=== PATIENT | male | born 1980 | race Caucasian/White ===

== ENCOUNTER 2023-02-12 08:47 | Emergency (ER) | payer OTHER, SELFPAY ==
--- NOTE | 2023-02-12 08:57 | ED.URI ---
HPI - URI/Sore Throat General Chief Complaint: Upper Respiratory Infection Stated Complaint: sorethroat,congestion Time Seen by Provider: 02/12/23 08:57 Source: patient Mode of arrival: ambulatory Limitations: no limitations History of Present Illness HPI Narrative: Sonny is a 42-year-old male patient presenting to the clinic today with complaints of fatigue, sore throat, nasal congestion, chest congestion x3 days. He reports no fever or chills but has had some body aches. 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 Has productive cough and bringing up some green phlegm. MD elicited complaint: cough, sore throat and nasal congestion Related Data Allergies Allergy/AdvReac Type Severity Reaction Status Date / Time No Known Allergies Allergy Verified 09/14/22 10:18 Review of Systems Review of Systems: Pertinent positives per HPI. Patient denies any fever, chills, rash, headache, visual changes, dizziness, cough, shortness of breath, chest pain, palpitations, nausea, vomiting, diarrhea, constipation, abdominal pain, or any urinary issues. PMFSH Past Medical History Medical History Wellness examination Family History Family History Mother Hypertension Social History Social History Smoking status: Former smoker Smoking end date: 04/18/04 Alcohol intake: current Drinks per week: 1 Substance use: never Substance use type: does not use Living arrangements: with family Occupation/Education: occupation Gender identity (if verbalized by the patient): Male Comments At the time of my signature, I reviewed and agree with the nursing past medical, surgical, social, and family history. There is no relevant family history pertinent to the patient complaint. Exam Narrative: General: Well-developed, well nourished, in no apparent distress Head: Normocephalic, atraumatic Eyes: Pupils equally round and reactive to light bilaterally, EOM intact, sclera and conjunctive clear, no discharge, lids normal Ears: TMs intact and congested, ear canals clear, no drainage, grossly hearing normal. Nose: Nares patent, clear nasal discharge, no inflammation, no sinus tenderness. Mouth: Oral pharynx red without lesions or masses, good dentition, MMM. Postnasal drip Neck: Supple, trachea midline, no enlargement of anterior or posterior cervical nodes, no thyroid masses or goiter palpable. Cardio: Regular rate and rhythm, s1 and s2 normal, no murmur appreciated. Resp: Clear to auscultation bilaterally, no rhonchi, rales, wheezing or rubs Course Course Emergency Course: Portions of this record may have been created with voice recognition software. Level of Care: Express Care Visit Vital Signs Vital signs: Vital signs reviewed MDM - URI/Sore Throat MDM Narrative Medical decision making narrative: At the time of visit patient is resting comfortably on the exam table. Strep screen and COVID testing was obtained. COVID testing was negative. Strep test was positive. Prescription for amoxicillin and prednisone was sent to the pharmacy to help with the postnasal drip and congestion. Supportive measures were discussed with the patient he voiced understanding discharge instructions agrees to treatment plan. Differential Diagnosis Differential diagnosis: Likely upper respiratory infection, otitis media, sinusitis, viral infection, bronchitis, influenza, pharyngitis and other (COVID) Discharge Plan Discharge Clinical Impression: Strep pharyngitis URI (upper respiratory infection) Qualifiers: URI type: unspecified URI Qualified Code(s): J06.9 - Acute upper respiratory infection, unspecified Patient Disposition: Home, Self-Care Condition: Stable Instructions: Antibiotic Form, Strep Throat (ED), Upper Respirator
[2023-02-12 09:01] VITALS: BP 112/75; PULSE 60; RESP 18; TEMP 36.6; O2SAT 100
== END 2023-02-12 09:37 | disposition home or self-care (01) ==
PROVIDERS: Emergency Provider Nurse Practitioner Family; PCP Family Medicine
DX: J02.0 Streptococcal pharyngitis (principal); Z20.822 Contact with and (suspected) exposure to COVID-19; Z87.891 Personal history of nicotine dependence
CPT/HCPCS: 87081; 87426; 87880; 99213; C9803; G0463

== ENCOUNTER 2023-03-05 08:16 | Emergency (ER) | payer OTHER, SELFPAY ==
--- NOTE | 2023-03-05 08:23 | ED.URI ---
HPI - URI/Sore Throat General Chief Complaint: Upper Respiratory Infection Stated Complaint: congestion Time Seen by Provider: 03/05/23 08:28 Source: patient, RN notes reviewed and old records reviewed Mode of arrival: ambulatory Limitations: no limitations History of Present Illness HPI Narrative: 42-year-old male presents to the [facility] with complaints of sinus congestion. patient denies any fevers. States that this morning he coughed up some green phlegm. Patient was seen 3 weeks ago diagnosed with strep pharyngitis, prescribed amoxicillin and prednisone. Patient symptoms started Tuesday or Tuesday. 3-4 days ago. Treatment prior to arrival was NyQuil Patient states that he did get his flu and COVID booster on Tuesday, symptoms started afterwards. Denies chest pain, shortness of breath. Denies abdominal pain. Onset (ago): day(s) (3-4) Treatments prior to arrival: cold medicine Related Data Allergies Allergy/AdvReac Type Severity Reaction Status Date / Time No Known Allergies Allergy Verified 03/05/23 08:21 Review of Systems Review of Systems: All systems reviewed & are unremarkable except as noted in HPI and below Constitutional: Constitutional: Reports no additional constitutional complaints Eyes: Eyes: Reports no additional eye complaints ENT: Reports as per HPI and Reports nasal congestion Cardiovascular: Cardiovascular: Reports no additional cardiovascular complaints, Denies chest pain and Denies dyspnea Respiratory: Respiratory: Reports no additional respiratory complaints, Denies chest congestion, Denies cough and Denies dyspnea Gastrointestinal: Gastrointestinal: Reports no additional gastrointestinal complaints, Denies abdominal pain, Denies nausea and Denies vomiting Musculoskeletal: Musculoskeletal: Reports no additional musculoskeletal complaints Integumentary/Breasts: Skin/Breast: Reports system reviewed and no additional complaints, except as docu Neurologic: Reports system reviewed and no additional complaints, except as documented Psychiatric: Psychiatric: Reports no additional psychiatric complaints Allergic/Immunologic: Allergic/Immunologic: Reports no additional allergic/immunologic complaints [facility] Past Medical History Medical History (Updated 03/05/23 @ 08:45 by Kati Wilson APRN) OLY (generalized anxiety disorder) Wellness examination Surgical History Surgical History (Updated 03/05/23 @ 08:39 by Kati Wilson APRN) No pertinent past surgical history Family History Family History Mother Hypertension Social History Social History Smoking status: Former smoker Smoking end date: 04/18/04 Alcohol intake: current Drinks per week: 1 Substance use: never Substance use type: does not use Living arrangements: with family Occupation/Education: occupation Gender identity (if verbalized by the patient): Male Comments At the time of my signature, I reviewed and agree with the nursing past medical, surgical, social, and family history. There is no relevant family history pertinent to the patient complaint. Exam Const: General: cooperative, healthy appearing, comfortable, no acute distress, well developed, alert and well nourished Nutritional Appearance: well nourished Orientation/consciousness: patient oriented x3 Limitations: no limitations HENMT: Head: normal to inspection Ears: hearing grossly normal bilaterally, external ears normal, TM's normal bilaterally, mastoids normal and no periauricular adenopathy Face/Nose/Sinus: Normal external nose present, Normal nares present, Normal nasal mucous membranes and turbinates present, normal facial exam and face symmetric Face and sinus: normal facial exam and face symmetric Mouth: Yes Normal oral and palatal mucosa present, Yes lip normal and Yes moist mucous membranes Throat: posterior oropharynx n
[2023-03-05 08:32] VITALS: BP 121/80; PULSE 60; RESP 20; TEMP 36.6; O2SAT 100
== END 2023-03-05 08:46 | disposition home or self-care (01) ==
PROVIDERS: Emergency Provider Nurse Practitioner; PCP Family Medicine
DX: J06.9 Acute upper respiratory infection, unspecified (principal); Z87.891 Personal history of nicotine dependence; F41.1 Generalized anxiety disorder
CPT/HCPCS: 99211; G0463

== ENCOUNTER 2023-06-30 08:06 | Emergency (ER) | payer OTHER, SELFPAY ==
--- NOTE | 2023-06-30 08:13 | ED.GENADULT ---
HPI - General Adult General Chief complaint: Unspecified Stated complaint: Muscle Cramps Time Seen by Provider: 06/30/23 08:11 Source: patient, RN notes reviewed and old records reviewed Mode of arrival: ambulatory Limitations: no limitations History of Present Illness HPI narrative: 42-year-old male to Express Care for complaint muscle cramps and fatigue for 2 days. patient endorses that he has a appointment with his primary care provider in 2 weeks for his annual MD had labs done yesterday at [facility]. Patient denies chest pain or shortness of breath. Patient able to tolerate fluids by mouth. Related Data Allergies Allergy/AdvReac Type Severity Reaction Status Date / Time No Known Allergies Allergy Verified 06/28/23 09:59 Review of Systems Review of Systems: All systems reviewed & are unremarkable except as noted in HPI and below Constitutional: Constitutional: Reports as per HPI, Denies daytime sleepiness, Denies difficulty sleeping, Denies fever(s) and Denies poor appetite Eyes: Eyes: Reports no additional eye complaints ENT: Reports system reviewed and no additional complaints, except as documented Cardiovascular: Cardiovascular: Reports no additional cardiovascular complaints, Denies chest pain and Denies dyspnea Respiratory: Respiratory: Reports no additional respiratory complaints, Denies cough and Denies dyspnea Musculoskeletal: Musculoskeletal: Reports as per HPI, Reports arthralgias (chronic hips per pt) and Denies numbness Neurologic: Reports system reviewed and no additional complaints, except as documented Psychiatric: Psychiatric: Reports no additional psychiatric complaints, Denies abnormal sleep pattern, Reports anxiety, Denies change in appetite, Denies confusion and Reports panic attacks PMFSH Past Medical History Medical History OLY (generalized anxiety disorder) Wellness examination Surgical History Surgical History No pertinent past surgical history Family History Family History Mother Hypertension Social History Social History Smoking status: Former smoker Smoking end date: 04/18/04 Alcohol intake: current Drinks per week: 1 Substance use: never Substance use type: does not use Living arrangements: with family Occupation/Education: occupation Gender identity (if verbalized by the patient): Male Comments At the time of my signature, I reviewed and agree with the nursing past medical, surgical, social, and family history. There is no relevant family history pertinent to the patient complaint. Exam Const: General: cooperative, healthy appearing, comfortable, no acute distress, alert and well nourished Nutritional Appearance: well nourished Orientation/consciousness: patient oriented x3 Limitations: no limitations HENMT: Head: normal to inspection Ears: external ears normal Face/Nose/Sinus: Normal external nose present, Normal nares present, normal facial exam, No erythema and No edema Face and sinus: normal facial exam, no erythema and no edema Mouth: Yes Normal oral and palatal mucosa present Eyes: General: appearance normal, both eyes and all related structures Neck: Neck: normal visual inspection, full ROM and no meningeal signs Lymphatic: no lymphadenopathy noted and no lymphedema noted Chest: Chest palpation & inspection: normal inspection of the chest Resp: Effort & Inspection: normal respiratory effort and able to speak in complete sentences Auscultation: clear to auscultation bilaterally Cardio: Jugular venous distension: no JVD Rate: regular rate Rhythm: regular rhythm Back/Spine/Pelvis: Cervical Spine: cervical ROM normal Skin: General skin exam: normal color, no rashes or lesions noted and turgor normal Neuro: General
[2023-06-30 08:18] VITALS: BP 137/83; PULSE 60; RESP 18; TEMP 36.3; O2SAT 100
== END 2023-06-30 08:51 | disposition home or self-care (01) ==
PROVIDERS: Emergency Provider Nurse Practitioner Family; PCP Family Medicine
DX: F41.1 Generalized anxiety disorder (principal); R25.2 Cramp and spasm; Z87.891 Personal history of nicotine dependence
CPT/HCPCS: 99211; G0463

== ENCOUNTER 2023-11-18 11:55 | Emergency (ER) | payer OTHER, SELFPAY ==
[2023-11-18 12:07] VITALS: BP 129/86; PULSE 67; RESP 14; TEMP 36.4; O2SAT 98
[2023-11-18 12:08] VITALS: BP 129/86; PULSE 67; RESP 14; TEMP 36.4; O2SAT 98
--- NOTE | 2023-11-18 12:27 | ED.EXTPRO ---
HPI - Extremity Problem General Chief complaint: Extremity Problem,Nontraumatic Stated complaint: swelling on durant Time Seen by Provider: 11/18/23 12:13 Source: patient and RN notes reviewed Mode of arrival: ambulatory Limitations: no limitations History of Present Illness HPI Narrative: Patient presents today after being struck on his right durant 2 weeks ago by a softball during a game. He has some initial localized swelling and bruising and has been elevating and wearing a compression sleeve on the lower leg, which has been helpful. He presents today for a check of the area as the localized swelling is persisting. He has been able to resume jogging without pain. Related Data Allergies Allergy/AdvReac Type Severity Reaction Status Date / Time No Known Allergies Allergy Verified 11/18/23 12:07 Review of Systems Review of Systems: CONSTITUTIONAL: Denies body aches, fever, chills, or sweats. EYES: Denies visual changes, redness, or discharge. ENT: Denies rhinorrhea, congestion, sore throat, or otalgia. CARDIOVASCULAR: Denies chest pain, palpitations, or edema. RESPIRATORY: Denies cough or dyspnea. GASTROINTESTINAL: Denies abdominal pain, nausea, vomiting, or diarrhea. GENITOURINARY: Denies dysuria or hematuria. SKIN: Denies rash, itching, or wounds. MUSCULOSKELETAL: +right durant injury NEUROLOGIC: Denies headache, numbness, tingling, or weakness. PSYCH: Denies depression or anxiety. [facility] Past Medical History Medical History OLY (generalized anxiety disorder) Wellness examination Surgical History Surgical History No pertinent past surgical history Family History Family History Mother Hypertension Social History Social History Smoking status: Former smoker Smoking end date: 04/18/04 Alcohol intake: current Drinks per week: 1 Substance use: never Substance use type: does not use Living arrangements: with family Occupation/Education: occupation Gender identity (if verbalized by the patient): Male Comments At time of signature, I have reviewed and agree with nursing past medical, surgical, social and family history unless otherwise noted. Please see nursing chart for further information. There is no relevant family history pertinent to the presenting complaint Exam Narrative: GENERAL: Well-appearing, well-nourished, and in no acute distress. HEAD: Normocephalic, atraumatic. EYES: EOMI. No redness or drainage. Conjunctivae normal. ENT: Mucous membranes pink and moist. NECK: Normal AROM. CHEST: No respiratory distress. EXTREMITIES: Faint ecchymosis to the right medial durant that is mildly tender to palpation, with small area of localized swelling to the anterior durant. Dependent ecchymosis to the medial foot. Calf is nontender without ecchymosis or edema. Full AROM of the leg without pain. SKIN: Warm, dry, no rash. Capillary refill normal. Normal skin turgor. NEURO: No focal deficits. Alert and oriented x3. Gait steady. PSYCH: Normal affect. No signs of depression or anxiety. Course Course Level of Care: Express Care Visit Vital Signs Vital signs: Vital Signs Temperature 97.6 F 11/18/23 12:07 Pulse Rate 67 11/18/23 12:07 Respiratory Rate 14 11/18/23 12:07 Blood Pressure 129/86 11/18/23 12:07 Pulse Oximetry 98 11/18/23 12:07 Oxygen Delivery Room Air 11/18/23 12:07 Temperature 97.6 F 11/18/23 12:08 Pulse Rate 67 11/18/23 12:08 Respiratory Rate 14 11/18/23 12:08 Blood Pressure 129/86 11/18/23 12:08 Pulse Oximetry 98 11/18/23 12:08 Oxygen Delivery Room Air 11/18/23 12:08 Reviewed MDM - Extremity (Nontraumatic) MDM Narrative Medical decision making narrative: Hematoma seems to be
== END 2023-11-18 12:24 | disposition home or self-care (01) ==
PROVIDERS: Emergency Provider Nurse Practitioner; PCP Family Medicine
DX: S80.11XA Contusion of right lower leg, initial encounter (principal); W21.07XA Struck by softball, initial encounter; Y93.64 Activity, baseball; F41.1 Generalized anxiety disorder
CPT/HCPCS: 99212; G0463

== ENCOUNTER 2024-04-07 08:44 | Emergency (ER) | payer OTHER, SELFPAY ==
[2024-04-07 08:59] VITALS: BP 117/74; PULSE 80; RESP 18; TEMP 36.7; O2SAT 100
--- NOTE | 2024-04-07 09:42 | ED.URI ---
HPI - URI/Sore Throat General Chief Complaint: Upper Respiratory Infection Stated Complaint: sinus pain and red bump Source: patient Mode of arrival: ambulatory Limitations: no limitations History of Present Illness HPI Narrative: 43-year-old male presents to [facility] with complaints of sore throat, body aches and bilateral ear pressure for the past 3 days. Patient reports that his daughter was diagnosed with strep throat yesterday. Patient reports he also has a small area of redness to his left forearm for the past few days. Patient reports that he squeezed clear liquid from the area. Patient reports that his was recently diagnosed with staph infection to her right axillary region. Patient denies fever, chills, nausea vomiting or diarrhea. Patient has not tried taking any [id number] medications for symptoms. MD elicited complaint: sore throat Onset (ago): day(s) (3) Able to tolerate fluids by mouth: Yes Exacerbating factors: swallowing Context: sick contacts Related Data Allergies Allergy/AdvReac Type Severity Reaction Status Date / Time No Known Allergies Allergy Verified 04/07/24 09:14 Review of Systems Constitutional: Constitutional: Denies chills, Denies fatigue, Denies fever(s) and Denies weakness ENT: Denies dizziness, Denies epistaxis, Denies nasal congestion and Reports sore throat Comments: Bilateral ear pressure Respiratory: Respiratory: Denies chest congestion, Denies cough, Denies dyspnea and Denies wheezing Gastrointestinal: Gastrointestinal: Denies diarrhea, Denies nausea and Denies vomiting Integumentary/Breasts: Comments: Area of redness to left forearm PMFSH Past Medical History Medical History OLY (generalized anxiety disorder) Wellness examination Surgical History Surgical History No pertinent past surgical history Family History Family History Mother Hypertension Social History Social History Smoking status: Former smoker Smoking end date: 04/18/04 Alcohol intake: current Drinks per week: 1 Substance use: never Substance use type: does not use Living arrangements: with family Occupation/Education: occupation Gender identity (if verbalized by the patient): Male Comments At time of signature, I agree with nursing past medical, surgical, social and family history. There is no relevant family history pertinent to the presenting complaint. Exam Const: General: healthy appearing and no acute distress Nutritional Appearance: well nourished Orientation/consciousness: patient oriented x3 Limitations: no limitations HENMT: Head: normal to inspection Ears: external ears normal, TM's normal bilaterally and EAC's normal Face/Nose/Sinus: Normal external nose present and Normal nares present Face and sinus: normal facial exam Mouth: Yes Normal oral and palatal mucosa present, Yes lip normal and Yes moist mucous membranes Throat: uvula midline Other: Mild erythema noted to posterior pharynx. Tonsils are within normal Eyes: Conjunctivae: conjunctivae normal Neck: Neck: normal visual inspection Resp: Effort & Inspection: normal respiratory effort and not labored Auscultation: clear to auscultation bilaterally, no crackles, no rales, no rhonchi and no wheezes Cardio: Rate: regular rate Rhythm: regular rhythm Heart sounds: no murmurs Skin: General skin exam: normal color Other: There is a 1 cm raised area of erythema noted to left forearm. No streaking erythema, purulent drainage noted. Area appears to be very mild folliculitis Neuro: General: patient oriented x3 and moves all extremities Speech: normal speech Gait exam (Neuro): Normal gait present Psych: Mental Status: mental status grossly normal Affect: normal affect Attitude: cooperative Course Course Level of Care: Express Care Visit Vital Signs Vital signs: Vital Signs Temperature 36.7 C 04/07/24 08:59 Pulse Rate 80 04/07/24 08:59 Respiratory Rate 18 04/07/24 08:59 Blood Pressure 117/74 04/07/24 08:59 Pulse Oximetry 100 04/07/24 08:59 Oxygen Delivery Room Air 04/07/24 08:59 Temperature 36.7 C 04/07/24 08:59 Pulse Rate 80 04/07/24 08:59 Respiratory Rate 18 04/07/24 08:59 Blood Pressure 117/74 04/07/24 08:59 Pulse Oximetry 100 04/07/24 08:59 Oxygen Delivery Room Air 04/07/24 08:59 MDM - URI/Sore Throat MDM Narrative Medical decision making narrative: Instructed patient to use Flonase daily as he has at home. Also encouraged patient not to pick at area to left forearm and to apply antibiotic ointment as prescribed. Educated patient follow-up with primary care provider if symptoms are improved Differential Diagnosis Differential diagnosis: Likely upper respiratory infection, otitis media and sinusitis Critical Care Time Critical Care Time Critical Care Time: No Discharge Plan Discharge Clinical Impression: Folliculitis Pharyngitis Qualifiers: Pharyngitis/tonsillitis etiology: unspecified etiology Qualified Code(s): J02.9 - Acute pharyngitis, unspecified Patient Disposition: Home, Self-Care Condition: Stable Instructions: Pharyngitis (ED), Folliculitis (ED) Additional Instructions: Warm saltwater gargles as needed for throat pain Alternate Motrin and Tylenol as needed for throat pain Use Flonase daily Avoid picking at area to left forearm Apply antibiotic ointment as prescribed Follow-up with primary care provider if symptoms do not improve Patient Language: Indian Prescriptions: New mupirocin 2 % ointment 1 applic topical BID 7 Days Qty: 15 0RF Follow-up/Referrals: Adam Almaraz MD [Primary Care Provider] - Time of Disposition: 09:49
[2024-04-07 09:51] LABS: EDSTREPNEGPOS1 Negative (Negative)
--- OUTSIDE RECORDS SUMMARY | 2024-04-14 09:44 | XMS_ITS | Clinical Summary ---
Author Organization [facility] Address [address] [place] [address] Care Team Providers Care Engine Specialist Name Role Phone Adam Almaraz MD Primary Care Provider [phone] Source Comments [facility],non-owned Affiliates and Associated Physician Practices is amultiple site organization consisting of ambulatory clinics and hospital sitesin [place], [place], [place] and [place]. This disclosure is being madepursuant to the Care Everywhere program and may not contain all information available regarding this patient. Last updated 18.[facility] Allergies No known active allergies Medications Be aware that medications may not be up to date on this document. Always verify current medications with the patient. No known medications Social History Tobacco Use Types Packs/Day Years Used Date Smoking Tobacco: Former Sex and Gender Information Value Date Recorded Sex Assigned at Not on file Gender Identity Not on file Sexual Orientation Not on file Last Filed Vital Signs Vital Sign Reading Time Taken Comments Blood Pressure 132/88 03/22/2016 4:12 PM DOWEL INSPECTOR Pulse 49 03/22/2016 4:12 PM DOWEL INSPECTOR Temperature 37 ??C (98.6 ??F) 03/22/2016 4:12 PM DOWEL INSPECTOR Respiratory Rate 16 03/22/2016 4:12 PM DOWEL INSPECTOR Oxygen Saturation 99% 03/22/2016 4:12 PM DOWEL INSPECTOR Inhaled Oxygen Concentration - - Weight 81.6 kg (180 lb) 03/22/2016 4:12 PM DOWEL INSPECTOR Height 188 cm (6' 2 ) 03/22/2016 4:12 PM DOWEL INSPECTOR Body Mass Index 23.11 03/22/2016 4:12 PM DOWEL INSPECTOR Plan of Treatment Health Maintenance Due Date Last Done Comments COLOGUARD (AGES 45-75) - COL ON CA SCREENING 1978 COLON MONITORING 1978 COLONOSCOPY - COLON CA SCREENING 1978 CT COLONOGRAPHY - COLON CA SCREENING 1978 Colorectal Cancer Screening 1978 FIT - COLON CA SCREENING 1978 FLEX SIG - COLON CA SCREENING 1978 LIPID TESTING 1978 HIV SCREENING 1993 HEPATITIS C SCREENING 07/04/1996 DTAP/TDAP/TD VACCINES (1 - Tdap) 1997 HEPATITIS B VACCINE (1 of 3 - 19+ 3-dose series) 1997 DEPRESSION SCREENING 04/18/2023 COVID-19 VACCINE (1 - 2023-2 5 season) 2023 INFLUENZA VACCINE (#1) 2023 ZOSTER VACCINE (1 of 2) 2028 HIB VACCINE Aged Out No longer eligi ble based on patient's age to complete this topic HPV VACCINE Aged Out No longer eligi ble based on patient's age to complete this topic MENINGOCOCCAL VACCINE Aged Out No andrei kylie eligible based on patient's age to complete this topic PNEUMOCOCCAL VACCINE Aged Out No long er eligible based on patient's age to complete this topic Care Teams Engine Specialist Relationship Specialty Start Date End Date Adam Almaraz MD [address] [place] [address] PCP - General Family Medicine 03/22/16
--- OUTSIDE RECORDS SUMMARY | 2024-04-14 09:44 | XMS_ITS | Patient Health Summary ---
Author Organization [facility] Address [address] [place] [address] Care Team Providers Care Heat Treater Apprentice Name Role Phone Adam Almaraz MD Primary Care Provider [phone] Note from [facility],non-owned Affiliates and Associated Physician Practices is amultiple site organization consisting of ambulatory clinics and hospital sitesin [place], [place], [place] and [place]. This disclosure is being madepursuant to the Care Everywhere program and may not contain all information available regarding this patient. Last updated 18.[facility] Allergies No known active allergies Medications Be [...] Comments Blood Pressure 132/88 03/22/2016 4:12 PM DIRECTOR MEDICAL Pulse 49 03/22/2016 4:12 PM DIRECTOR MEDICAL Temperature 37 ??C (98.6 ??F) 03/22/2016 4:12 PM DIRECTOR MEDICAL Respiratory Rate 16 03/22/2016 4:12 PM DIRECTOR MEDICAL Oxygen Saturation 99% 03/22/2016 4:12 PM DIRECTOR MEDICAL Inhaled Oxygen Concentration - - Weight 81.6 kg (180 lb) 03/22/2016 4:12 PM DIRECTOR MEDICAL Height 188 cm (6' 2 ) 03/22/2016 4:12 PM DIRECTOR MEDICAL Body Mass Index 23.11 03/22/2016 4:12 PM DIRECTOR MEDICAL Procedures * STREP A SCREEN - POINT OF CARE (AMB) STL(Performed 03/22/2016) Performed for Acute pharyngitis, unspecified etiology Results * STREP A SCREEN (03/22/2016) Strep A Rapid POCT Negative Negative Strep A Internal Control Present Lot # [id number] Expiration Date [id number] Throat ENTIRE THROAT (SURFACE REGION OF NECK) / Unknown 03/22/2016 Geovanni Cain NURSING INFORMATION SYSTEMS COORDINATOR-ON SITE MANAGER LAB - POINT OF CARE ORDERABLES Care Teams Heat Treater Apprentice Relationship Specialty Start Date End Date Adam Almaraz MD [address] [place] [address] PCP - General Family Medicine 03/22/16
--- OUTSIDE RECORDS SUMMARY | 2024-04-14 09:44 | XMS_ITS | Encounter Summary ---
Author Organization [facility] Address [address] [place] [address] Care Team Providers Care Lecturer Of Portuguese Name Role Phone Adam Almaraz MD Primary Care Provider [phone] Reason for Visit * Reason Comments Sore Throat Encounter Details Date Type Department Care Team (Late st Contact Info) Description 03/22/2016 4:20 PM PLANT INSPECTOR Office Visit [facility] AT [address] [id number] Provider, [facility] Acute pharyngitis, unspecified etiology (Primary Dx) Social History Tobacco Use Types Packs/Day Years Used Date Smoking Tobacco: Former Sex and Gender Information Value Date Recorded Sex Assigned at Not on file Gender Identity Not on file Sexual Orientation Not on file documented as of this encounter Last Filed Vital Signs Vital Sign Reading Time Taken Comments Blood Pressure 132/88 03/22/2016 4:12 PM PLANT INSPECTOR Pulse 49 03/22/2016 4:12 PM PLANT INSPECTOR Temperature 37 ??C (98.6 ??F) 03/22/2016 4:12 PM PLANT INSPECTOR Respiratory Rate 16 03/22/2016 4:12 PM PLANT INSPECTOR Oxygen Saturation 99% 03/22/2016 4:12 PM PLANT INSPECTOR Inhaled Oxygen Concentration - - Weight 81.6 kg (180 lb) 03/22/2016 4:12 PM PLANT INSPECTOR Height 188 cm (6' 2 ) 03/22/2016 4:12 PM PLANT INSPECTOR Body Mass Index 23.11 03/22/2016 4:12 PM PLANT INSPECTOR documented in this encounter Patient Instructions * Patient Instructions* Geovanni Cain APRN-CNP - 03/22/2016 4:29 PM PLANT INSPECTOR Drink plenty of fluids Get plenty of rest Cool mist humidifier Elevate head of bed Tylenol or Ibuprofen per package direction for discomfort\fever (if not allergic) T INSPECTOR documented in this encounter Progress Notes * Geovanni Cain APRN-CNP - 03/22/2016 4:26 PM CST Office Visit, Established Patient, [id number] HISTORY: (1-3 elements) CC & HPI: Sonny Galvin is a 35 y.o. male established patient, here for: Chief Complaint Patient presents with ??? Sore Throat General The history is provided by the patient. This is a new problem. The current episode started more than 2 days ago. The symptoms are localized to the mouth. I have reviewed the medications listed in the patient's chart. Review of Systems (1 required) Review of Systems Constitutional: Negative. HENT: Positive for sore throat. Respiratory: Negative. Cardiovascular: Negative. PFSH, other pertinent history: Past Medical History Diagnosis Date ??? NEGATIVE PAST MEDICAL HISTORY - SEE PROBLEM LIST I have reviewed the allergies listed in the patient's chart. EXAM (6 elements from any single system exam or 6 or more elements from a multisystem exam) BP 132/88 (BP SITE: LEFT ARM, BP POSITION: SITTING, BP CUFF SIZE: Adult) Pulse 49 Temp 98.6 ??F (Oral) Resp 16 Wt 81.6 kg (180 lb) SpO2 99% BMI 23.11 kg/m2 FiO2: Physical Exam Constitutional: He is well-developed, well-nourished, and in no distress. HENT: Right Ear: Hearing, tympanic membrane, external ear and ear canal normal. Left Ear: Hearing, tympanic membrane, external ear and ear canal normal. Nose: Nose normal. Mouth/Throat: Posterior oropharyngeal erythema present. No oropharyngeal exudate or posterior oropharyngeal edema. Cardiovascular: Normal rate, regular rhythm and normal heart sounds. Pulmonary/Chest: Effort normal and breath sounds normal. Vitals reviewed. ASSESSMENT: 1. Acute pharyngitis, unspecified etiology PLAN: Orders Placed This Encounter ??? STREP A SCREEN Drink plenty of fluids Get plenty of rest Cool mist humidifier Elevate head of bed Tylenol or Ibuprofen per package direction for discomfort\fever (if not allergic) Refused cx at this time. Return to office in PRN. Patient instructed to call with any concerns or problems. T INSPECTOR documented in this encounter Plan of Treatment Not on file documented as of this encounter Procedures Procedure Name Priority Date/Time Associated Diagnosis Comments STREP A SCREEN - POINT OF CARE (AMB) STL Routine 03/22/2016 Acute pharyngitis, unspecified etiology documented in this encounter Results * STREP A SCREEN (03/22/2016) Strep A Rapid POCT Negative Negative Strep A Internal Control Present Lot # [id number] Expiration Date 52710425 Throat ENTIRE THROAT (SURFACE REGION OF NECK) / Unknown 03/22/2016 Geovanni [facility] LAB - POINT OF CARE ORDERABLES documented in this encounter Visit Diagnoses Diagnosis Acute pharyngitis, unspecified etiology- Primary documented in this encounter Care Teams Lecturer Of Portuguese Relationship Specialty Start Date End Date Adam Almaraz MD [address] [place] [address] PCP - General Family Medicine 03/22/16 documented as of this encounter
--- OUTSIDE RECORDS SUMMARY | 2024-04-14 09:44 | XMS_ITS | Referral Summary ---
Author Organization [facility] [employer] Address [address] [place] [address] Care Team Providers Care Tire Buffer Name Role Phone Adam Almaraz MD Primary Care Provider [phone] Source Comments [facility] [employer]non-owned Affiliates and Associated Physician Practices is amultiple site organization consisting of ambulatory clinics and hospital sitesin [place], [place], [place] and [place]. This disclosure is being madepursuant to the Care Everywhere program and may not contain all information available regarding this patient. Last updated 18.[facility] [employer] Allergies No known active allergies Medications Be [...] Comments Blood Pressure 132/88 03/22/2016 4:12 PM QUALITATIVE FIELD PROJECT MANAGER Pulse 49 03/22/2016 4:12 PM QUALITATIVE FIELD PROJECT MANAGER Temperature 37 ??C (98.6 ??F) 03/22/2016 4:12 PM QUALITATIVE FIELD PROJECT MANAGER Respiratory Rate 16 03/22/2016 4:12 PM QUALITATIVE FIELD PROJECT MANAGER Oxygen Saturation 99% 03/22/2016 4:12 PM QUALITATIVE FIELD PROJECT MANAGER Inhaled Oxygen Concentration - - Weight 81.6 kg (180 lb) 03/22/2016 4:12 PM QUALITATIVE FIELD PROJECT MANAGER Height 188 cm (6' 2 ) 03/22/2016 4:12 PM QUALITATIVE FIELD PROJECT MANAGER Body Mass Index 23.11 03/22/2016 4:12 PM QUALITATIVE FIELD PROJECT MANAGER Plan of Treatment Not on file Care Teams Tire Buffer Relationship Specialty Start Date End Date Adam Almaraz MD [address] [place] [address] PCP - General Family Medicine 03/22/16
== END 2024-04-07 09:53 | disposition home or self-care (01) ==
PROVIDERS: Emergency Provider Nurse Practitioner Family; PCP Family Medicine
DX: L73.9 Follicular disorder, unspecified (principal); J02.9 Acute pharyngitis, unspecified; Z87.891 Personal history of nicotine dependence
CPT/HCPCS: 87081; 87880; 99213; G0463

== ENCOUNTER 2025-01-07 08:01 | Emergency (ER) | payer OTHER, SELFPAY ==
--- NOTE | 2025-01-07 08:06 | ED.SKABFB ---
HPI - Skin/Abscess/Foreign Bdy General Chief complaint: Skin/Abscess/Foreign Body Stated complaint: Insect Bite On RT Foot Time Seen by Provider: 01/07/25 08:08 Source: patient, RN notes reviewed and old records reviewed Mode of arrival: ambulatory Limitations: no limitations History of Present Illness HPI narrative: 44 year old male presents to [facility] care with complaints of bites to his right foot near the base of his 4th toes after being in the garden on Tuesday. Patient has 2 red raised lesions noted on right foot which are red swollen and itchy no drainage noted or any surrounding redness or warmth, Patient reports that areas are itchy, denies any fevers. MD complaint: insect bite/sting Onset (ago): day(s) (2 days ago) Location: R foot Severity: mild Treatments prior to arrival: other (after bite ointment) Related Data Allergies Allergy/AdvReac Type Severity Reaction Status Date / Time No Known Allergies Allergy Verified 01/07/25 08:08 Review of Systems Review of Systems: CONSTITUTIONAL: Denies fever, chills, or sweats. CARDIOVASCULAR: Denies chest pain, palpitations, or edema. RESPIRATORY: Denies cough or dyspnea. GASTROINTESTINAL: Denies abdominal pain, nausea, vomiting SKIN: Reports redness and swelling with 2 circular red lesions on the right foot near the 4th toe which are itchy, non draining. MUSCULOSKELETAL: Denies myalgia. NEUROLOGIC: Denies headache, numbness All systems reviewed & are unremarkable except as noted in HPI and below PMFSH Past Medical History Medical History OLY (generalized anxiety disorder) Wellness examination Surgical History Surgical History No pertinent past surgical history Family History Family History Mother Hypertension Social History Social History Smoking status: Former smoker Smoking end date: 04/18/04 Alcohol intake: current Drinks per week: 1 Substance use: never Substance use type: does not use Living arrangements: with family Occupation/Education: occupation Gender identity (if verbalized by the patient): Male Comments At time of signature, agree with nursing past medical, surgical, social and family history. There is no relevant family history pertinent to the presenting complaint Exam Narrative: GENERAL: Well-appearing, well-nourished, and in no acute distress. HEAD: Normocephalic, atraumatic. EYES: PERRLA and EOMI. ENT: Nares clear, no rhinorrhea or epistaxis. Mucous membranes moist. NECK: Supple. CHEST: Clear to auscultation. No respiratory distress.SAO2 100% on room air HEART: Regular rate and rhythm. No murmur heard. Normal peripheral pulses. ABDOMEN: Soft, nontender, nondistended, normal active bowel sounds. EXTREMITIES: Normal range of motion. No edema. SKIN: Warm, dry. Erythema,minimal tenderness,no warmth with 2 0.5cm raised lesions on his right foot near the base of 4th toe No vesicles, bullae, necrosis, ecchymosis, crepitus noted NEURO: No focal deficits. Alert and oriented x3. Course Course Emergency Course: Patient is aware of diagnosis, understands and agrees to treatment plan. Anticipatory guidance given. Patient agrees to follow-up as directed and is aware of reasons to seek care at the emergency department. Portions of this record may have been created with voice recognition software Level of Care: Express Care Visit Vital Signs Vital signs: Vital Signs Temperature 36.3 C L 01/07/25 08:08 Pulse Rate 55 L 01/07/25 08:08 Respiratory Rate 18 01/07/25 08:08 Blood Pressure 123/76 01/07/25 08:08 Pulse Oximetry 100 01/07/25 08:08 Oxygen Delivery Room Air 01/07/25 08:08 Temperature 36.3 C L 01/07/25 08:08 Pulse Rate 55 L 01/07/25 08:08 Respiratory Rate 18 01/07/25 08:08 Blood Pressure 123/76 01/07/25 08:08 Pulse Oximetry 100 01/07/25 08:08 Oxygen Delivery Room Air 01/07/25 08:08 Reviewed MDM - Skin/Abscess/Foreign Bdy MDM Narrative Medical decision making narrative: Does not appear at this time to be erythema multiforme, bullous, SJS, TEN; no evidence at this time to suggest RMSF, endocarditis or Lyme disease; patient looks well, nontoxic and is tolerating oral intake; no neurologic signs or symptoms; no headache, photophobia or neck pain; afebrile; appropriate for initial outpatient treatment; discussed the importance of follow-up, patient agrees. Patient does not have history of penetrating trauma, laceration, blunt trauma, recent surgery, immunosuppression, malignancy, obesity, alcoholism, corticosteroid use. Question cellulitis, necrotizing soft tissue infection, abscess. Differential Diagnosis Differential diagnosis: Likely abscess of skin or subcutaneous tissue, cellulitis, insect bites, contact dermatitis and other (localized reaction to bug bite or sting) Medical Records Attestation: I reviewed the patient's medical records. Critical Care Time Critical Care Time Critical Care Time: No Discharge Plan Discharge Clinical Impression: Cutaneous reaction to insect bite Insect bites Qualifiers: Encounter type: initial encounter Site of insect bite: foot Laterality: right Qualified Code(s): S90.861A - Insect bite (nonvenomous), right foot, initial encounter Patient Disposition: Home Condition: Stable Instructions: Insect Bite or Sting (ED) Additional Instructions: Cleanse area well with liquid Dial soap twice daily apply mupirocin ointment watch for increasing infection--redness, swelling, drainage Tylenol or Ibuprofen for any fever or pain follow up with PCP in 7-10 days for a wound check recheck if develop fever, chills, increasing symptom Go to the ER if your symptoms become worse of if ANY new symptoms develop Steroids as ordered with food take evening dose prior to 6 PM Take Zyrtec daily If your symptoms persist, change or worsen significantly before you can contact your personal physician then please, without delay, go to the emergency department for further evaluation. Follow-up with PCP in 7-10 days or sooner if needed Patient Language: Frisian Prescriptions: New prednisone 20 mg tablet 20 mg PO BID Qty: 10 0RF Rx Instructions: Take with food mupirocin [Centany] 2 % ointment 1 applic topical BID Qty: 22 0RF Follow-up/Referrals: Adam Almaraz MD [Primary Care Provider, [facility]] Time of Disposition: 08:27 Quality Anthony Coma Scale Eyes: Open Verbal: Oriented and Alert Motor: Follows Commands Anthony Coma Total Score: 15
[2025-01-07 08:08] VITALS: BP 123/76; PULSE 55; RESP 18; TEMP 36.3; O2SAT 100
--- OUTSIDE RECORDS SUMMARY | 2025-01-07 08:32 | XMS_ITS | Clinical Summary ---
Author Organization [facility] [employer] Address [address] [place] [address] Care Team Providers Care Donations Attendant Name Role Phone Adam Almaraz MD Primary Care Provider [phone] Source Comments [facility] [employer],non-owned Affiliates and Associated Physician Practices is amultiple site organization consisting of ambulatory clinics and hospital sitesin [place], [place], [place] and [place]. This disclosure is being madepursuant to the Care Everywhere program and may not contain all information available regarding this patient. Last updated 18.[facility] [employer] Allergies No known active allergies Medications * Be aware that medications may not be up to date on this document. Alwaysverify current medications with the patient. 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 Gender Identity Not on file Sexual Orientation Not on file Last Filed Vital Signs Vital Sign Reading Time Taken Comments Blood Pressure 132/88 03/22/2016 4:12 PM TRANSPORT TRUCK DRIVER Pulse 49 03/22/2016 4:12 PM TRANSPORT TRUCK DRIVER Temperature 37 C (98.6 F) 03/22/2016 4:12 PM TRANSPORT TRUCK DRIVER Respiratory Rate 16 03/22/2016 4:12 PM TRANSPORT TRUCK DRIVER Oxygen Saturation 99% 03/22/2016 4:12 PM TRANSPORT TRUCK DRIVER Inhaled Oxygen Concentration - - Weight 81.6 kg (180 lb) 03/22/2016 4:12 PM TRANSPORT TRUCK DRIVER Height 188 cm (6' 2) 03/22/2016 4:12 PM TRANSPORT TRUCK DRIVER Body Mass Index 23.11 03/22/2016 4:12 PM TRANSPORT TRUCK DRIVER Plan of Treatment Health Maintenance Due Date Last Done Comments ROGELIO (AGES 45-75) - COL ON CA SCREENING [...] - 19+ 3-dose series) 1997 DEPRESSION SCREENING 04/18/2024 COVID-19 VACCINE (1 - 2023-2 5 season) 2024 INFLUENZA VACCINE (#1) 2024 ZOSTER VACCINE (1 of 2) 2028 HIB VACCINE Aged Out No longer eligi ble based on patient's age to complete this topic HPV VACCINE Aged Out No longer eligi ble based on patient's age to complete this topic MENINGOCOCCAL (Group B) VACC INE SHARED DECISION-MAKING Aged Out No longer eligibl e based on patient's age to complete this topic MENINGOCOCCAL GROUPS A/C/Y/W VACCINE Aged Out No longer eligible b ased on patient's age to complete this topic PNEUMOCOCCAL VACCINE Aged Out No long er eligible based on patient's age to complete this topic Insurance [place] [address] [place] [address] Care Teams Donations Attendant Relationship Specialty Start Date End Date Adam Almaraz MD [address] [place] [address] PCP - General Family Medicine 03/22/16
== END 2025-01-07 08:45 | disposition home or self-care (01) ==
PROVIDERS: Emergency Provider Registered Nurse; PCP Family Medicine
DX: S90.861A Insect bite (nonvenomous), right foot, initial encounter (principal); W57.XXXA Bitten or stung by nonvenomous insect and other nonvenomous arthropods, initial encounter; Z87.891 Personal history of nicotine dependence
CPT/HCPCS: 99213; G0463

== ENCOUNTER 2025-02-20 19:58 | Emergency (ER) | payer OTHER, SELFPAY ==
[2025-02-20 20:04] VITALS: BP 121/82; PULSE 63; RESP 18; TEMP 36.3; O2SAT 100
--- NOTE | 2025-02-20 20:22 | ED.GENADULT ---
HPI - General Adult General Chief complaint: Skin/Abscess/Foreign Body Stated complaint: reaction Time Seen by Provider: 02/20/25 20:07 Source: patient, RN notes reviewed and old records reviewed Mode of arrival: ambulatory Limitations: no limitations History of Present Illness HPI narrative: 44 year old male patient with extensive history of anxiety presents tonight complaining of a burning fiery pain to the chest and arms tonight that occurred around 1845 that has since resolved. Patient was just hospitalized for his severe anxiety and discharged home on sertraline that he started 2 days ago at 25 mg daily. He is also on 0.5 mg of lorazepam p.r.n. Patient denies any additional symptoms to include shortness of breath, chest pain, facial swelling, vomiting. He believes these symptoms are due to the sertraline, as he has had muscle cramping and fatigue related to sertraline use in 2022 and switched over to escitalopram, which was also later stopped. At this time, he feels that his anxiety is doing well. Related Data Allergies Allergy/AdvReac Type Severity Reaction Status Date / Time buspirone AdvReac Intermediate tremors Verified 02/20/25 20:01 [facility] Past Medical History Medical History OLY (generalized anxiety disorder) Wellness examination Surgical History Surgical History No pertinent past surgical history Family History Family History Mother Hypertension Social History Social History Smoking end date: 04/18/04 Alcohol intake: current Drinks per week: 1 Substance use: never Substance use type: does not use Living arrangements: with family Occupation/Education: occupation Gender identity (if verbalized by the patient): Male Comments At time of signature, I have reviewed and agree with nursing past medical, surgical, social and family history unless otherwise noted. Please see nursing chart for further information. There is no relevant family history pertinent to the presenting complaint Exam Narrative: GENERAL: Well-appearing, well-nourished, and in no acute distress. HEAD: Normocephalic, atraumatic. No facial swelling EYES: EOMI. No redness or drainage. Conjunctivae normal. ENT: Mucous membranes pink and moist. Nares clear. No rhinorrhea. Throat normal. Uvula midline. NECK: Normal AROM. Supple. No lymphadenopathy. CHEST: No respiratory distress. Clear to auscultation. HEART: Regular rate and rhythm. No murmur appreciated. Normal peripheral pulses. ABDOMEN: Soft, nondistended, normal active bowel sounds. MUSCULOSKELETAL: No bony tenderness. EXTREMITIES: Normal range of motion. No edema. SKIN: Warm, dry, no rash. Capillary refill normal. Normal skin turgor. NEURO: No focal deficits. Alert and oriented x3. Gait steady. PSYCH: Normal affect. No signs of depression or anxiety. Course Course Level of Care: Express Care Visit Vital Signs Vital signs: Vital Signs Temperature 97.4 F L 02/20/25 20:04 Pulse Rate 63 02/20/25 20:04 Respiratory Rate 18 02/20/25 20:04 Blood Pressure 121/82 02/20/25 20:04 Pulse Oximetry 100 02/20/25 20:04 Oxygen Delivery Room Air 02/20/25 20:04 Temperature 97.4 F L 02/20/25 20:04 Pulse Rate 63 02/20/25 20:04 Respiratory Rate 18 02/20/25 20:04 Blood Pressure 121/82 02/20/25 20:04 Pulse Oximetry 100 02/20/25 20:04 Oxygen Delivery Room Air 02/20/25 20:04 Reviewed Medical Decision Making MDM Narrative Medical decision making narrative: 44 year old male patient with extensive history of anxiety presents tonight complaining of a burning fiery pain to the chest and arms tonight that occurred around 184 that has since resolved. Patient was just hospitalized for his severe anxiety and discharged home on sertraline that he started 2 days ago at 25 mg daily. He is also on 0.5 mg of lorazepam p.r.n. Patient denies any additional symptoms to include shortness of breath, chest pain, facial swelling, vomiting. He believes these symptoms are due to the sertraline, as he has had muscle cramping and fatigue related to sertraline use in 2022 and switched over to escitalopram, which was also later stopped. At this time, he feels that his anxiety is doing well. Patient's physical exam normal. Symptoms could likely be due to this sertraline use as he has had adverse reaction to sertraline in the past, could also be due to anxiety itself. Recommend holding his dose of sertraline tomorrow until speaking with his PCP who will be managing his medication. He has lorazepam p.r.n. if he needs it. Vital signs stable. Patient agrees with plan. Anticipatory guidance given. Differential Diagnosis Differential Diagnosis: Anxiety, medication reaction Vital Signs Vital Signs: Vital Signs Temperature 97.4 F L 02/20/25 20:04 Pulse Rate 63 02/20/25 20:04 Respiratory Rate 18 02/20/25 20:04 Blood Pressure 121/82 02/20/25 20:04 Pulse Oximetry 100 02/20/25 20:04 Oxygen Delivery Room Air 02/20/25 20:04 Temperature 97.4 F L 02/20/25 20:04 Pulse Rate 63 02/20/25 20:04 Respiratory Rate 18 02/20/25 20:04 Blood Pressure 121/82 02/20/25 20:04 Pulse Oximetry 100 02/20/25 20:04 Oxygen Delivery Room Air 02/20/25 20:04 Critical Care Time Critical Care Time Critical Care Time: No Discharge Plan Discharge Clinical Impression: Medication reaction Qualifiers: Encounter type: initial encounter Qualified Code(s): T50.905A - Adverse effect of unspecified drugs, medicaments and biological substances, initial encounter Patient Disposition: Home Condition: Stable Additional Instructions: Your symptoms tonight may be due to your new prescription of Sertraline. Call your PCP tomorrow before taking your next dose of Sertraline. Patient Language: Japanese Prescriptions: No Action lorazepam [Ativan] 0.5 mg tablet 0.5 mg PO DAILY PRN (Reason: anxiety) Qty: 7 0RF Follow-up/Referrals: Adam Almaraz MD [Primary Care Provider, [facility]] Time of Disposition: 20:21
--- OUTSIDE RECORDS SUMMARY | 2025-02-20 23:11 | XMS_ITS | Encounter Summary ---
Author Organization [facility] Address [address] [place] [address] Care Team Providers Care Dump Truck Operator Name Role Phone Adam Almaraz MD Primary Care Provider [phone] Reason for Visit * Reason Comments Medical Problem Encounter Details Date Type Department Care Team (Late st Contact Info) Description 02/20/2025 11:11 PM STOCK ROLLER - 02/21/2025 3:02 AM [facility] Emergency [facility] Emergency Room [id number] [place] [address] Claire Marcelo DO [address] [place] [id number] Medical Problem Discharge Disposition: Home or Self Care (Routine Discharge) Social History Tobacco Use Types Packs/Day Years Used Date Smoking Tobacco: Never Smokeless Tobacco: Never Alcohol Use Standard Drinks/Week Comments Never 0 (1 standard drink = 0.6 oz pur e alcohol) Humiliation, Afraid, Rape, and Kick questionnair e Answer Date Recorded Within the last year, have y ou been afraid of your partner or ex-partner? No 02/18/2025 Within the last year, have y ou been humiliated or emotionally abused in other ways by your partner or ex-partner? No Within the last year, have y ou been kicked, hit, slapped, or otherwise physically hurt by your partner or ex-partner? No 02/18/2025 Within the last year, have y ou been raped or forced to have any kind of sexual activity by your partner or ex-partner? No 02/18/2025 Overall Financial Resource Strain (CARDIA) Answe r Date Recorded How hard is it for you to pa y for the very basics like food, housing, medical care, and heating? Not hard at all 02/18/2025 Hunger Vital Sign Answer Date Recorded Within the past 12 months, y ou worried that your food would run out before you got the money to buy more. Never true 02/19/20 25 Within the past 12 months, t he food you bought just didn't last and you didn't have money to get more. Never true 02/18/2025 PRAPARE - Transportation Answer Date Re corded In the past 12 months, has l ack of transportation kept you from medical appointments or from getting medications? No 06/2024 In the past 12 months, has l ack of transportation kept you from meetings, work, or from getting things needed for daily living? No 02/18/2025 Housing Stability Vital Sign Answer Hakeem e Recorded In the last 12 months, was t here a time when you were not able to pay the mortgage or rent on time? No 02/18/2025 In the past 12 months, how m any times have you moved where you were living? 0 02/18/2025 At any time in the past 12 m [facility], were you homeless or living in a retirement (including now)? No 02/18/2025 [facility] Utilities Answer Date Recorded In the past 12 months has th e electric, gas, oil, or water company threatened to shut off services in your home? No 02/18/2025 Sex and Gender Information Value Date Recorded Sex Assigned at Male 02/14/2025 7:13 PM CDT Legal Sex Male 6:54 PM CDT Gender Identity Male 02/14/2025 7:13 PM CDT Sexual Orientation Not on file documented as of this encounter Last Filed Vital Signs Vital Sign Reading Time Taken Comments Blood Pressure 115/72 02/21/2025 2:48 AM STOCK ROLLER Pulse 58 02/21/2025 2:48 AM STOCK ROLLER Temperature 36.6 C (97.9 F) 02/21/2025 2:48 AM STOCK ROLLER Respiratory Rate 7 02/21/2025 2:48 AM STOCK ROLLER Oxygen Saturation 98% 02/21/2025 2:48 AM STOCK ROLLER Inhaled Oxygen Concentration - - Weight 82 kg (180 lb 12.4 oz) 02/20/2025 11:19 P M STOCK ROLLER Height 188 cm (6' 2) 02/20/2025 11:19 PM STOCK ROLLER Body Mass Index 23.21 02/20/2025 11:19 PM STOCK ROLLER documented in this encounter Functional Status * Are you deaf or do you have serious difficulty hearing Answer Date of Assessment Author Status No 02/18/2025 11:53 AM Ekaterina Tolentino RN Active * Are you blind or do you have serious difficulty seeing, even when wearing glasses? Answer Date of Assessment Author Status No 02/18/2025 11:53 AM Ekaterina Tolentino RN Active * Do you have serious difficulty walking or climbing stairs? Answer Date of Assessment Author Status No 02/18/2025 11:53 AM Ekaterina Tolentino RN Active * Do you have difficulty dressing or bathing? Answer Date of Assessment Author Status No 02/18/2025 11:53 AM Ekaterina Tolentino RN Active * Because of a physical, mental, or emotional condition, do you have difficulty doing errands alone such as visiting a doctor's office or shopping? Answer Date of Assessment Author Status No 02/18/2025 11:53 AM Ekaterina Tolentino RN Active * Calculated C-SSRS Risk Score (Lifetime/Recent) Answer Date of Assessment Author Status No Risk Indicated 02/20/2025 11:21 PM Kori Patel RN Active * [place] Suicide Severity Rating Scale (Screener/Recent Self-Report) Question Answer Date of Assessment Author Status 1. Wish to be (Past 1 Month) No 02/20/2025 11:21 PM Mellisa Patel RN Ac tive 2. Non-Specific Active Suicidal Thoughts (Past 1 Month) No 02/20/2025 11:21 PM Mellisa Patel RN Ac tive 6. Suicidal Behavior (Lifetime) No 02/20/2025 11:21 PM Mellisa Patel RN Ac tilasha documented as of this encounter Mental Status * Because of a physical, mental, or emotional condition, do you have serious difficulty concentrating, remembering, or making decisions? Answer Entry Date Author Status No 02/18/2025 11:53 AM Ekaterina Tolentino RN Active documented in this encounter Discharge Instructions * Discharge Instructions* Claire Marcelo, - 02/21/2025 2:39 AM STOCK ROLLER PLEASE FOLLOW UP WITH YOUR PRIMARY CARE PHYSICIAN IN THE NEXT 2-3 DAYS You were examined and treated today on an emergency basis only. This emergency medical screening examination does not substitute for complete medical care. Please remember that medicine is an art as well as a science and not everything can be addressed during your emergency visit. We try very hard to rule out life- threatening problems here. As such, you may need to address additional problems with a primary care physician. Your visit here is not complete without an examination and follow-up by your primary care physician. It is your responsibility to contact your primary doctor for a follow-up visit as soon as possible. You may also have been given the name of a specialist to contact. It isyour responsibility to contact and make an appointment with the specialist as well. We have not made any appointments for you. Failure to see your doctor or the referring specialist as soon as possible may worsen your medical condition and cause prison disabilities. Make the appointment today sothere is no delay! Please follow your discharge instructions from today in the meantime. RESPOND TO WARNING SIGNS If your symptoms do not improve within the timeline we discussed, or they become worse, either contact your primary care physician immediately or come back to the emergency department. In the event of an emergency, dial [id number] for an ambulance. Medical emergencies include but are not limited to: sudden headache, fever, bleeding, dizziness, paralysis, chest pain, stomach pain, nausea and vomiting, worsening pain, unable to keep fluids down or any other symptoms that worry you. Remember that the emergency department is open 24 hours a day, every day, and we will be happy to see you at any time. You MUST follow up for further evaluation of all incidental abnormal radiographic and laboratory findings, Have your physician obtain records from this visit and address all the incidental abnormal findings. This may include final results of lab testing, cultures, final x-ray reports which may not have been available during the time of the visit. K ROLLER * Attachments The following attachments cannot be sent through Care Everywhere. * Side effects from medicines (Salvadorean) documented in this encounter Medications at Time of Discharge LORazepam (ATIVAN) 0.5 MG tablet Take 1 tablet (0.5 mg total) by mouth every 6 (six) hours as needed for Anxiety. sertraline (ZOLOFT) 25 MG tablet Take 1 tablet (25 mg total) by mouth daily for 30 days. 30 tablet 02/20/2025 03/22/2025 documented as of this encounter ED Notes * Claire Marcelo DO - 02/20/2025 11:46 PM CST Emergency Department Note 02/21/25 2:48 AM Chief Complaint : Medical Problem Pt advised around 1845 he had an Icy hot flash down his neck and body. He described it as feelinglike someone rubbed IcyHot muscle rub across his body. While brushing his teeth, he felt as if his facial muscles were slow. He went to urgent care around 2000 hrs and they advised him to see his doctor tomorrow. At approx 2245, while laying in bed, he felt a second icy hot flash go across his lungs. Pt has hx of anxiety, and has been seen twice this week in the ED for anxiety and panic attacks. HPI : Jie Castle is a 44-year-old male who presents for an icy hot feeling flash down his body.States that this happened twice today. It happened earlier this evening and then again an hour ago.He states that when he was brushing his teeth, he felt like his facial muscles were slow. He went to urgent care at 2000hrs and was told to f/u tomorrow. When he was laying in bed, he felt the secondwave of icy hot through his lungs. He states that he just started setraline 3 days ago and read on the internet and these were common side effects. However, the second time is what scared him. He wasadmitted previously for abnormal EKG and had a nuclear stress test as well as a ECHO yesterday. He c laims no anxiety right now. History Chief Complaint Patient presents with Medical Problem HPI Past Medical History[1] Past Surgical History[2] Family History[3] Social History[4] Review of Systems Review of systems completed. Abnormals are noted above in HPI. Physical Exam Vital Signs: Filed Vitals: 02/20/25 2319 02/20/25 2321 02/21/25 0000 02/21/25 0100 BP: 132/89 119/77 Pulse: 72 79 (!) 57 Resp: 22 14 12 Temp: 97.8 ??F (36.6 ??C) SpO2: 100% 100% 100% 99% Weight: 82 kg (180 lb 12.4 oz) Height: 1.88 m (6' 2) GENERAL: Patient is conscious alert and oriented x3 and in no acute distress. HEENT: Head is normocephalic and atraumatic. Extraocular muscles are intact. Oral mucosa are moist and without lesion. NECK: Trachea is midline. No meningeal signs. LUNGS: Lungs are clear to auscultation bilaterally. There is good respiratory effort. HEART: Regular rate and rhythm, no murmur. There is no gallop or rub. No pitting edema. ABDOMEN: Soft and nontender to palpation. Bowel sounds are normal in all quadrants. There is no guarding or rebound. There are no masses. No CVA tenderness. MUSCULOSKELETAL: Moves all extremities x4. There is no obvious deformity. Distal pulses are intact.No spinal process tenderness. SKIN: Exposed skin shows no obvious erythema. Skin is warm and dry. There is no rash. NEUROLOGIC: Patient is conscious, alert and oriented x3. No focal neurologic defect is noted. 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1980 Requested By: CLAIRE MARCELO Order Number: [id number] Reading MD: Measurements Intervals [place] Rate: 64 P: 75 MD: 134 QRS: 56 QRSD: 89 T: -28 QT: 382 QTc: 395 Interpretive Statements SINUS RHYTHM SEPTAL MYOCARDIAL INFARCTION , OF INDETERMINATE AGE [40+ ms Q WAVE IN V1/V2] ST DEPRESSION, CONSIDER SUBENDOCARDIAL INJURY [0.1+ mV ST DEPRESSION] Compared to ECG 02/19/2025 06:10:18 Myocardial infarct finding now present ST (T wave) deviation now present Sinus arrhythmia no longer present T-wave abnormality no longer present Labs Reviewed CBC W/DIFF AUTOMATED - Abnormal; Notable for the following components: Result Value MCHC 34.9 (*) All other components within normal limits COMPREHENSIVE METABOLIC PANEL - Abnormal; Notable for the following components: GLUCOSE 112 (*) POTASSIUM S/P/B 3.4 (*) GFR ESTIMATE 75 (*) All other components within normal limits TROPONIN, QUANT MAGNESIUM TROPONIN, QUANT XR CHEST PA+LAT Final Result by User, [id number] (02/22 16) [facility] [address] [facility] [place] [address] INDICATION: abnormal sensation in the chest and lungs COMPARISON: X-ray chest 02/18/2025 TECHNIQUE: 2 PA radiographs and one lateral radiograph of the chest FINDINGS: No focal airspace consolidation. No pleural effusion or pneumothorax. Cardiomediastinal silhouette and pulmonary vasculature are within normal limits. No acute osseous abnormality. IMPRESSION: 1. No acute cardiopulmonary process. Referred By: Interpreted By: Demario Ken MD, 02/21/2025 12:09 AM ED Course Medical Decision Making Amount and/or Complexity of Data Reviewed Labs: ordered. Radiology: ordered. ECG/medicine tests: ordered. Discussed results with patient. He is feeling better and was able to rest a bit. Labs are reassuring as are the recent cardiac testing done yesterday. He will need to f/u with PCP and cardiology. He agrees. ECHO--02/19/2025 ++++++++++++++++++++++++++++++++++++ SUMMARY: ++++++++++++++++++++++++++++++++++++ The left ventricular systolic function is normal. Estimated left ventricular ejection fraction is 60-65%. The right ventricular function is normal. Nuclear Stress 02/19/2025 Narrative & Impression Myocardial Perfusion Imaging ++++++++++++++++++++++++++++++++++++ SUMMARY: ++++++++++++++++++++++++++++++++++++ Stress conclusion: 1. Clinically negative. 2. Electrocardiographically non diagnostic treadmill test for ischemia due to baseline abnormality. 3. Adequate exercise capacity achieving 9.8 METs. 4. Jimenez Treadmill Score is -2.5 (baseline ST depression), which indicates moderate risk. 5. Blood pressure response was normal. 6. Scintigraphic images to follow. Perfusion conclusion: 1. Fair study quality. Resting motion correction was applied to images. Diaphragm attenuation is noted. Prone imaging was performed. 2. Normal myocardial perfusion SPECT imaging. 3. Normal wall motion with an ejection fraction of 71%. 4. Stress test with myocardial perfusion imaging shows overall low risk for a cardiac event. ED Course as of 02/21/25 0248 Chery Feb 21, 202540 Pt was worried about serotonin syndrome. I discussed that he is not tachycardic, high temp, muscle rigidity, hyperreflexia, confusion, tachypneic. He does have have a baseline anxiety, which does not help the symptoms he is experiencing. [CL] 0130 Pt's HR has dipped down into the 40s when he is sleeping. He has had his pulse in the 40s before at his outpatient appt. [CL] ED Course User Index [CL] Claire Marcelo DO -Patient seen and evaluated, available studies reviewed -Prior available records reviewed, triage notes reviewed. Medications LORazepam (ATIVAN) tablet 1 mg (1 mg Oral Given 02/21/2544) potassium chloride CR (KLOR-CON M) tablet 20 mEq (20 mEq Oral Given 02/21/25154) New Prescriptions No medications on file Clinical impression: SNOMED CT(R) 1. Abnormal sensation of thorax ABNORMAL SENSATION 2. 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 In an effort to expedite patient care, this report has not been adjusted for typographical, grammatical, and syntax by a trained curator medical museum. CLAIRE MARCELO DO 02/21/2025 [1] Past Medical History: Diagnosis Date Anxiety disorder, unspecified [2] History reviewed. No pertinent surgical history. [3] Family History Problem Relation Name Age of Onset Heart Disease Father [4] Social History Tobacco Use Smoking status: Never Smokeless tobacco: Never Vaping Use Vaping status: Never Used Substance Use Topics Alcohol use: Never Drug use: Never Claire Marcelo DO 02/21/25 0528 K ROLLER * Mellisa Garcia RN - 02/20/2025 11:13 PM CST Pt advised around 1845 he had an Icy hot flash down his neck and body. He described it as feelinglike someone rubbed IcyHot muscle rub across his body. While brushing his teeth, he felt as if his facial muscles were slow. He went to urgent care around 2000 hrs and they advised him to see his doctor tomorrow. At approx 2245, while laying in bed, he felt a second icy hot flash go across his lungs. Pt has hx of anxiety, and has been seen twice this week in the ED for anxiety and panic attacks. K ROLLER documented in this encounter Plan of Treatment Upcoming Encounters Date Type Department Care Team (Late st Contact Info) Description 03/11/2025 3:15 PM STOCK ROLLER Office Visit [facility], [address] [id number] Elise Westbrook MD [address] [facility] [address] [place] [id number] documented as of this encounter Goals Goal Patient Goal Type Associated Problems Recent Progress Patient-Stated? Author Health - patient able to perform ADLs independently Lifestyle No Ekaterina Zarate RN documented as of this encounter Procedures Procedure Name Priority Date/Time Associated Diagnosis Comments TROPONIN, QUANT STAT 02/21/2025 2:00 AM STOCK ROLLER XR CHEST PA+LAT STAT 02/21/2025 12:04 AM STOCK ROLLER COMPREHENSIVE METABOLIC PANEL STAT 02/20/2025 11:56 PM STOCK ROLLER CBC W/DIFF AUTOMATED STAT 02/20/2025 11:56 PM STOCK ROLLER TROPONIN, QUANT STAT 02/20/2025 11:56 PM STOCK ROLLER MAGNESIUM STAT 02/20/2025 11:56 PM STOCK ROLLER ECG 12-LEAD Routine 02/20/2025 11:40 PM STOCK ROLLER documented in this encounter Results * TROPONIN, QUANT (02/21/2025 2:00 AM STOCK ROLLER) TROPONIN I HIGH SENSITIVITY 17 0 - 75 ng/L 02/21/2025 2:31 AM STOCK ROLLER [facility] Comment: HIGH DOSES OF BIOTIN, TROPONIN-SPECIFIC AUTOANTIBODIES, AND ANTIBODY THERAPY CONTAINING HAMA MAY INTERFERE WITH THIS TEST RESULT. CORRELATION TO CLINICAL HISTORY AND PRESENTATION RECOMMENDED. 02/21/2025 2:00 AM STOCK ROLLER Claire Marcelo DO LABORATORY Final Result [facility] [address] [place] [address], * XR CHEST PA+LAT (02/21/2025 12:04 AM STOCK ROLLER) Anatomical Region Laterality Modality Chest Radiographic Taylor ging 02/21/2025 12:0 9 AM STOCK ROLLER Impressions 02/21/2025 12:11 AM STOCK ROLLER IMPRESSION: 1. No acute cardiopulmonary process. Referred By: Interpreted By: Demario Ken MD, 02/21/2025 12:09 AM Narrative 02/21/2025 12:11 AM STOCK ROLLER [facility] [address] [facility] [place] [address] INDICATION: abnormal sensation in the chest and lungs COMPARISON: X-ray chest 02/18/2025 TECHNIQUE: 2 PA radiographs and one lateral radiograph of the chest FINDINGS: No focal airspace consolidation. No pleural effusion or pneumothorax. Cardiomediastinal silhouette and pulmonary vasculature are within normal limits. No acute osseous abnormality. Procedure Note Demario Ken DO - 02/21/2025 [facility] [address] [facility] [place] [address] INDICATION: abnormal sensation in the chest and lungs COMPARISON: X-ray chest 02/18/2025 TECHNIQUE: 2 PA radiographs and one lateral radiograph of the chest FINDINGS: No focal airspace consolidation. No pleural effusion or pneumothorax.Cardiomediastinal silhouette and pulmonary vasculature are within normallimits. No acute osseous abnormality. IMPRESSION: 1. No acute cardiopulmonary process. Referred By: Interpreted By: Demario Ken MD, 02/21/2025 12:09 AM Claire Marcelo DO GENERAL IMAGING Final Result * MAGNESIUM (02/20/2025 11:56 PM STOCK ROLLER) Pathologist [facility] MAGNESIUM 1.9 1.8 - 2.4 MG/DL 02/21/2025 12:51 AM STOCK ROLLER [facility] 02/20/2025 11:5 6 PM STOCK ROLLER us Claire Marcelo DO LABORATORY Final Result [facility] [address] [place] [address], * TROPONIN, QUANT (02/20/2025 11:56 PM STOCK ROLLER) Pathologist [facility] TROPONIN I HIGH SENSITIVITY 19 0 - 75 ng/L 02/21/2025 12:32 AM STOCK ROLLER [facility] Comment: HIGH DOSES OF BIOTIN, TROPONIN-SPECIFIC AUTOANTIBODIES, AND ANTIBODY THERAPY CONTAINING HAMA MAY INTERFERE WITH THIS TEST RESULT. CORRELATION TO CLINICAL HISTORY AND PRESENTATION RECOMMENDED. 02/20/2025 11:5 6 PM STOCK ROLLER Claire Marcelo LABORATORY Final Result [facility] [address] [place] [address], * (ABNORMAL) COMPREHENSIVE METABOLIC PANEL (02/20/2025 11:56 PM STOCK ROLLER) GLUCOSE 112(H) 70 - 99 MG/DL 02/21/2025 12:51 AM [facility] BUN 9 7 - 18 MG/DL 02/21/2025 12:51 AM [facility] CREATININE S/P/B 1.21 0.7 - 1.3 MG/DL 02/21/2025 12:51 AM [facility] SODIUM S/P/B 139 136 - 145 MMOL/L 02/21/2025 12:51 AM [facility] POTASSIUM S/P/B 3.4(L) 3.5 - 5.1 MMOL/L 02/21/2025 12:51 AM [facility] CHLORIDE S/P/B 104 100 - 108 MMOL/L 02/21/2025 12:51 AM [facility] CO2 21.2 21 - 32 MMOL/L 02/21/2025 12:51 AM [facility] CALCIUM S/P/B 9.4 8.5 - 10.1 MG/DL 02/21/2025 12:51 AM [facility] BILIRUBIN TOTAL S/P/B 0.9 0.2 - 1.2 MG/DL 02/21/2025 12:51 AM [facility] TOTAL PROTEIN S/P/B 6.7 6.4 - 8.2 G/DL 02/21/2025 12:51 AM [facility] ALBUMIN S/P/B 4.1 3.4 - 5.0 G/DL 02/21/2025 12:51 AM [facility] AST 23 15 - 37 U/L 02/21/2025 12:51 AM [facility] ALT 21 16 - 60 U/L 02/21/2025 12:51 AM [facility] ALKALINE PHOSPHATASE S/P/B 66 50 - 136 U/L 02/21/2025 12:51 AM [facility] ANION GAP 13.8 5 - 15 MMOL/L 02/21/2025 12:51 AM [facility] BUN CREATININE RATIO 7.4 6 - 26 02/21/2025 12:51 AM [facility] A/G RATIO 1.6 1.0 - 2.0 RATIO 02/21/2025 12:51 AM [facility] GFR ESTIMATE 75(L) >90 ML/MIN/1.7 3 M2 02/21/2025 12:51 AM [facility] Comment: NOTE: eGFR is not calculated for patients <18 years of age. This is an estimated GFR calculation using the new CKD EPI creatinine equation without race and so does not require a correction factor for race. This estimated GFR should not be used for calculating drug doses. 02/20/2025 11:5 6 PM STOCK ROLLER us Claire Marcelo DO LABORATORY Final Result [facility] [address] [facility] [place] [address], [place] [phone] * (ABNORMAL) CBC W/DIFF AUTOMATED (02/20/2025 11:56 PM STOCK ROLLER) WBC 6.96 4.4 - 11.0 x10'3/uL 02/21/2025 12:45 AM [facility] RBC 5.08 4.50 - 5.90 x10'6/uL 02/21/2025 12:45 AM [facility] HGB 15.7 14.0 - 17.5 G/DL 02/21/2025 12:45 AM [facility] HCT 45.0 41.5 - 50.4 % 02/21/2025 12:45 AM [facility] MCV 88.6 80.0 - 96.0 FL 02/21/2025 12:45 AM [facility] MCH 30.9 26.5 - 31.4 PG 02/21/2025 12:45 AM [facility] MCHC 34.9(H) 31.9 - 34.8 G/DL 02/21/2025 12:45 AM [facility] RDW 12.3 12.3 - 14.3 % 02/21/2025 12:45 AM [facility] PLT 188 151 - 353 x10'3/uL 02/21/2025 12:45 AM [facility] MPV 9.7 9.7 - 11.9 FL 02/21/2025 12:45 AM [facility] RBC MORPHOLOGY NORMAL 02/21/2025 12:45 AM [facility] PLT MORPH. NORMAL 02/21/2025 12:45 AM [facility] WBC MORPHOLOGY NORMAL 02/21/2025 12:45 AM [facility] LYMPHOCYTES % 18.8 15.8 - 45.0 % 02/21/2025 12:45 AM [facility] NEUTROPHILS % 71.7 42.1 - 71.9 % 02/21/2025 12:45 AM STOCK ROLLER [facility] MONOCYTES % 8.0 5.7 - 12.5 % 02/21/2025 12:45 AM STOCK ROLLER [facility] EOSINOPHILS 1.1 0.0 - 5.6 % 02/21/2025 12:45 AM STOCK ROLLER [facility] BASOPHILS 0.3 0.0 - 1.3 % 02/21/2025 12:45 AM STOCK ROLLER [facility] ABS. NEUTROPHILS 4.98 1.40 - 6.00 x10'3/uL 02/21/2025 12:45 AM STOCK ROLLER [facility] IMMATURE GRANS % 0.1 0.0 - 0.5 % 02/21/2025 12:45 AM STOCK ROLLER [facility] ABS. LYMPHOCYTES 1.31 0.80 - 4.70 x10'3/uL 02/21/2025 12:45 AM STOCK ROLLER [facility] 02/20/2025 11:5 6 PM STOCK ROLLER Claire Marcelo DO LABORATORY Final Result Performing Organization Address City/State/[facility] Co de Phone Number [facility] [address] [place] [address], * ECG 12 lead (02/20/2025 11:40 PM STOCK ROLLER) ECG QT 382 [facility] ([facility]) RAD ECG QTC 395 [facility] ([facility]) RAD 02/20/2025 11:4 0 PM STOCK ROLLER Narrative [facility]) RAD - 02/21/2025 11:06 AM STOCK ROLLER [facility] Test Date: 2025-02-20 Pat Name: JIE CASTLE Department: 85 Room: EXAM 202 Gender: Male [employer] 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: : 1980 Requested By: CLAIRE MARCELO Order Number: [id number] Reading MD: Elise Westbrook Measurements Intervals [place] Rate: 64 P: 75 MD: 134 QRS: 56 QRSD: 89 T: -28 QT: 382 QTc: 395 Interpretive Statements SINUS RHYTHM SEPTAL MYOCARDIAL INFARCTION , OF INDETERMINATE AGE [40+ ms Q WAVE INV1/V2] ST DEPRESSION, CONSIDER SUBENDOCARDIAL INJURY [0.1+ mV ST DEPRESSION] Compared to ECG 02/19/2025 06:10:18 Myocardial infarct finding now present ST (T wave) deviation now present K ROLLER us Claire Marcelo DO ECG ORDERABLES Final Result [facility] ([facility] RAD documented in this encounter Visit Diagnoses Diagnosis Abnormal sensation of thorax- Primary Adverse effect of selective serotonin reuptake inhibitor (SSRI), initial encounter documented in this encounter Administered Medications Inactive Administered Medications - up to 3 most recent administrations Medication Order MAR Action Action Date Dose Rate Site LORazepam (ATIVAN) tablet 1 mg 1 mg, Oral, Once, 1 dose, On Chery 02/21/25 at 0045 Given 02/21/2025 12:45 AM STOCK ROLLER 1 mg potassium chloride CR (KLOR-CON M) tablet 20 mEq 20 mEq, Oral, Once, 1 dose, On Chery 02/21/25 at 0145, Do not chew, crush, or suck on tablet. May break in half. May dissolve whole tablet in 120 mL of water and drink immediately. Given 02/21/2025 1:55 AM STOCK ROLLER 20 mEq documented in this encounter Active and Recently Administered Medications Times are shown in STOCK ROLLER. Scheduled Medication Order 02/19/2025 02/20/2025 02/21/2025 LORazepam (ATIVAN) tablet 1 mg (COMPLETED) 1 mg, Oral, Once, 1 dose, On Chery 02/21/25 at 0045 0045 (Given - Provid er: Mellisa Garcia RN) potassium chloride CR (KLOR-CON M) tablet 20 mEq (COMPLETED) 20 mEq, Oral, Once, 1 dose, On Chery 02/21/25 at 0145, Do not chew, crush, or suck on tablet. May break in half. May dissolve whole tablet in 120 mL of water and drink immediately. 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
--- OUTSIDE RECORDS SUMMARY | 2025-02-21 07:30 | XMS_ITS ---
Author Organization [facility] Address [address] [facility] [address] [place] [address] Care Team Providers Care Bit Shaver Name Role Phone Marcello Santamaria Unavailable [phone] Allergies Allergen (clinical drug ingredient) Drug/Non Drug Allergy documented on EMR Reaction Allergy Type Onset Date Status sertraline Sertraline Unknown Drug Allergy Activ e Results Component Value Reference Range Notes UDT (12 Panel) Reviewed date:02/21/2025 12:59:22 PM Interpretation: Performing Lab: Notes/Report: Amphetamine (AMP) neg Barbiturates (BAR) neg Benzodiazepine (BZO) pos Cocaine (ANDREY) neg Ecstasy (MDMA) neg Methamphetamine (MET) neg Morphine (MOP) neg Methadone (MTD) neg Oxycodone (OXY) neg Phencyclidine (PCP) neg Tricyclic Antidepressants (TCA) neg Marijuana (THC) neg REASON FOR VISIT anxiety Medications Medication SIG (Take, Route, Frequency, Duration) Notes Start Date End Date Status Vortioxetine HBr 5 MG Tablet 1 tablet Orally Once a day; Duration: 30 days 02/21/2025 Active hydrOXYzine Pamoate 25 MG Capsule 1 capsule Orally 4 times a day; Duration: 30 days As needed 02/21/2025 Active LORazepam 0.5 MG Tablet 1 tablet at bedt mike as needed Orally Once a day Active Vortioxetine HBr 5 MG Tablet 1 tablet Orally daily 02/22/2025 Active Social History Tobacco Use: Social History Observation Description Date Details (start date - stop date) Former Smoker 08/13/1996 - 11/04/2014 Sex Assigned At : Social History Observation Description Sex Assigned At Male Social History Miscellaneous: Social Info Question Answer Notes Safety issues: Do you feel safe at home? Yes Are there any firearms in the house? Yes Social History Social Info Question Answer Notes Household: Marital Status: Number of Adults in household: 2 Number of Children in Household: 1 Level of Education: Professional Schools/Masters /PhD Household: Social Info Question Answer Notes Household Marital status: Number of adults in household: 2 Number of children in household: 1 Gnosticist: taoist Level of education: finished college Drug/Alcohol: Social Info Question Answer Notes Drugs Have you used drugs other than those for medical reasons in the past 12 months? No AUDIT-C (Standard) Did you have a drink containing alcohol in the past year? Yes How often did you have a drink containing alcohol in the past year? Monthly or less (1 point) How many drinks did you have on a typical day when you were drinking in the past year? 1 or 2 drinks (0 point) How often did you have six or more drinks on one occasion in the past year? Never (0 point) Points 1 Interpretation Negative Tobacco Use: Social Info Question Answer Notes Tobacco Control (Standard) Tobacco use: Former smoker When did you start smoking? 08/13/1996 When did you stop smoking? 11/04/2014 How long has it been since you last smoked? 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 Problems Problem Type SNOMED Code ICD Code Onset Dates Problem Status W/U Status Risk Notes Problem Generalized anxiety disorder (86144857) OLY (generalized anxiety disorder) (F41.1) Active confirmed Vital Signs Blood pressure systolic 135 mm Hg 02/22/20 25 Blood pressure diastolic 81 mm Hg 025 Heart Rate 82 /min 02/21/2025 Weight 174 lbs 02/21/2025 Weight-kg 78.93 kg 02/21/2025 Encounters Encounter Location Date Provider Diagnosis [facility], [facility] [address] [address] 02/21/2025 Marcello Clubb OLY (generalized anxiety disorder) F41.1 Assessments Encounter Date Diagnosis (ICD Code) Assessment Notes Treatment Notes Treatment Clinical Notes Section Notes 02/21/2025 OLY (generalized anxiety disorder) (ICD-10 - F41.1) Assessment and plan reviewed with patient Call for problems with medication, side effects or need for dosage change Compliance issues reviewed Discussed the risks/benefits of this medication Discussed medication side effects Return if symptoms worsen Treatment options reviewed. discussed that it can take weeks to see full therapeutic effects of psychotropic medications. discussed when to seek emergency services. discussed crisis prevention hotline [phone]. 02/21/2025 Other Vortioxetine material was printed, Hydroxyzine material was printed 1. Adverse Reaction to Sertraline - Assessment: Patient experienced concerning symptoms on third day of sertraline including panic, icy hot waves across body, facial numbness, and icy hot sensations in esophagus and lungs with menthol-like breathing sensation. Symptoms required ER evaluation where patient received Ativan which helped with shaking. Residual icy hot sensations in chest and lungs persisted the following morning. ER ruled out serotonin syndrome as patient had no fever. Likely represents sensitivity to serotonin due to underlying generalized anxiety disorder rather than true allergic reaction, as patient did not develop rash or throat closure. - Plan: a. Discontinue sertraline b. Start vortioxetine 5 mg tablets, take half tablet (2.5 mg) for 4 days, then increase to 5 mg daily until next visit c. Take vortioxetine in the morning starting tomorrow 2. Generalized Anxiety Disorder - Assessment: Patient has history of anxiety with previous successful treatment with Lexapro for 2-3 months during school year. Recent stressors including work stress and medical emergency at home led to loss of anxiety control with elevated blood pressure readings. Patient had adverse reactions to buspirone with shaking episodes. Morning anxiety and panic episodes are prominent, with some episodes manageable through breathing techniques. Patient experiences ruminating thoughts at bedtime that interfere with sleep. Anxiety symptoms are consistent with overactive amygdala affecting fight-flight response, breathing, heart rate, and temperature regulation. - Plan: a. Start vortioxetine 2.5 mg for 4 days, then 5 mg daily b. Hydroxyzine 25 mg up to 4 times daily as needed for anxiety, can take 2 tablets at once if one doesn't work, not to exceed 100 mg daily c. Jefferson lorazepam for really big episodes only. d. Grounding techniques information provided e. External stressor techniques: hold ice cube, use Warheads sour candy, or apply Vicks Vaporub mustache before bed for pungent smell f. encourage initiation of psychotherapy Plan Of Treatment Medication Medication Name Sig Start Date Stop Date Notes Vortioxetine HBr 5 MG Tablet 1 tablet Or ally Once a day; Duration: 30 days 02/21/2025 hydrOXYzine Pamoate 25 MG Capsule 1 capsule Orally 4 times a day; Duration: 30 days 02/21/2025 LORazepam 0.5 MG Tablet 1 tablet at bedt mike as needed Orally Once a day Treatment Notes Assessment Notes OLY (generalized anxiety disorder) Assessment and plan reviewed with patient Call for problems with medication, side effects or need for dosage change Compliance issues reviewed Discussed the risks/benefits of this medication Discussed medication side effects Return if symptoms worsen Treatment options reviewed. discussed that it can take weeks to see full therapeutic effects of psychotropic medications. discussed when to seek emergency services. discussed crisis prevention hotline 988. Other Vortioxetine material was printed, Hydroxyzine material was printed 1. Adverse Reaction to Sertraline - Assessment: Patient experienced concerning symptoms on third day of sertraline including panic, icy hot waves across body, facial numbness, and icy hot sensations in esophagus and lungs with menthol-like breathing sensation. Symptoms required ER evaluation where patient received Ativan which helped with shaking. Residual icy hot sensations in chest and lungs persisted the following morning. ER ruled out serotonin syndrome as patient had no fever. Likely represents sensitivity to serotonin due to underlying generalized anxiety disorder rather than true allergic reaction, as patient did not develop rash or throat closure. - Plan: a. Discontinue sertraline b. Start vortioxetine 5 mg tablets, take half tablet (2.5 mg) for 4 days, then increase to 5 mg daily until next visit c. Take vortioxetine in the morning starting tomorrow 2. Generalized Anxiety Disorder - Assessment: Patient has history of anxiety with previous successful treatment with Lexapro for 2-3 months during school year. Recent stressors including work stress and medical emergency at home led to loss of anxiety control with elevated blood pressure readings. Patient had adverse reactions to buspirone with shaking episodes. Morning anxiety and panic episodes are prominent, with some episodes manageable through breathing techniques. Patient experiences ruminating thoughts at bedtime that interfere with sleep. Anxiety symptoms are consistent with overactive amygdala affecting fight-flight response, breathing, heart rate, and temperature regulation. - Plan: a. Start vortioxetine 2.5 mg for 4 days, then 5 mg daily b. Hydroxyzine 25 mg up to 4 times daily as needed for anxiety, can take 2 tablets at once if one doesn't work, not to exceed 100 mg daily c. Jefferson lorazepam for really big episodes only. d. Grounding techniques information provided e. External stressor techniques: hold ice cube, use Warheads sour candy, or apply Vicks Vaporub mustache before bed for pungent smell f. encourage initiation of psychotherapy Next Appt Details Follow Up: , Reas on: medication follow upp Provider Name:Marcello Matias Rosalio, 03/07/2025 08:15:00 AM, [address], [facility] [address], [place], [address], History and Physical Notes * HPI (History of Present Illness) Category Sub-Category Detail Notes Category Not es History of Presenting Problem Past Psychiatric Hospitalizations Previous psychiatric hospitalizations Previous Psychiatric Hospitalization: No Depression screening PHQ-9 Little inte rest or pleasure in doing things: Not at all Feeling down, depressed, or hopeless: Se veral days Trouble falling or staying asleep, or sl eeping too much: Not at all Feeling tired or having little energy: S everal days Poor appetite or overeating: Not at all Feeling bad about yourself o r that you are a failure, or have let yourself or your family down: Not at all Trouble concentrating on thi ngs, such as reading the newspaper or watching television: Not at all Moving or speaking so slowly that other people could have noticed; or the opposite, being so fidgety or restless that you have been moving around a lot more than usual: Not at all Thoughts that you would be b brigitte off or of hurting yourself in some way: Not at all Total Score: 2 Interpretation: Minimal Depression Intervention Depression Screening Findings: N egative Follow-Up for Depression: Co ping support assessment,Management of mental health treatment,Mental health care assessment,Mental health care education,Mental health care management,Mental health history taking assessment,Mental health promotion assessment,Mental health screening assessment,Mental health screening education,Mental health treatment assessment,Mental health treatment education Suicide Risk Assessment Performed: 02/21 Name of the standardized too l used for adult depression screening:: Patient Health Questionnaire (PHQ-9),Raymundo Depression Inventory (BDI or BDI-II) Depression Screening OLY-7 (2018 Edition) Feelin g nervous, anxious, or on edge: Nearly every day Not being able to stop or control worryi ng: More than half the days Worrying too much about different things : Nearly every day Trouble relaxing: Not at all Being so restless that it is hard to sit still: Not at all Becoming easily annoyed or irritable: Ne eliud every day Feeling afraid as if something awful mita ht happen: Several days Total OLY-7 Score: 12 Interpretation of Total: (10 to 14) Mode rate [place]-Suicide Severity Rating Scale Suicide Risk (CSRS-screener) in the past one month Have you wished you were or wished you could go to sleep and not wake up?: No in the past one month Have y ou actually had any thoughts of killing yourself?: No Have you ever done anything, started to do anything, or prepared to do anything to end your life?: No Examination Category Sub-Category Detail Notes Category Not es Psychiatry Appearance: well-groomed, we ll-nourished, appears stated age Attitude: cooperative Psychomotor activity: within normal rang e Abnormal body movements: none Attention: normal in conversati on Degree of awareness of surroundings: wit hin normal limits Orientation: awake, alert and [place] ented x 3 Affect / mood: anxious Speech / language: appropriate pitch/mo dulation, clear and coherent, normal rate, volume, and articulation (RVR), proper grammar used Thought content: appropriate Perceptual disorders: no perceptual diso rder noted Suicidal ideation: none Homicidal ideation: none Memory status: no impairment noted Delusions: no Hallucinations: no Comprehension - Intellectual function: n ormal in conversation Abstract / proverb - Intellectual functi on: not tested Similarities / opposites - I ntellectual function: not tested Gait no impairment Progress Notes * Sonny CASTLEDOB: [birth year] (44 yo M)Acc No.[id number]:02/21/2025 Patient: Sonny Albert Provider: RITU Longoria :1980 A ge:44 Y S ex:Male Date:02/21/2025 Phone: Address:[address] [id number] Subjective: * Chief Complaints: * A nxiety * HPI: D epression Screening: OLY-7 (2018 Edition) F eeling nervous, anxious, or on edge N early every day N ot being able to stop or control worrying?More than half the days W orrying too much about different things N early every day T rouble relaxing N ot at all B eing so restless that it is hard to sit still N ot at all B ecoming easily annoyed or irritable N early every day F eeling afraid as if something awful might happen S everal days T otal OLY-7 Score 1 2 I nterpretation of Total ( 10 to 14) Moderate P ast Psychiatric Hospitalizations: multiple ER visits for anxiety prior psych medication buspar sertraline lorazepam. Previous psychiatric hospitalizations P revious Psychiatric Hospitalization N o [place]-Suicide Severity Rating Scale: Suicide Risk (CSRS-screener) i n the past one month Have you wished you were or wished you could go to sleep and not wake up? N o i n the past one month Have you actually had any thoughts of killing yourself? N o H ave you ever done anything, started to do anything, or prepared to do anything to end your life? N o D epression screening: PHQ-9 L ittle interest or pleasure in doing things?Not at all F eeling down, depressed, or hopeless S everal days T rouble falling or staying asleep, or sleeping too much N ot at all F eeling tired or having little energy S everal days P oor appetite or overeating N ot at all F eeling bad about yourself or that you are a failure, or have let yourself or your family down N ot at all T rouble concentrating on things, such as reading the newspaper or watching television N ot at all M oving or speaking so slowly that other people could have noticed; or the opposite, being so fidgety or restless that you have been moving around a lot more than usual N ot at all T houghts that you would be better off or of hurting yourself in some way N ot at all T otal Score 2 I nterpretation M inimal Depression Intervention D epression Screening Findings N egative F ollow-Up for Depression C oping support assessment,Management of mental health treatment,Mental health care assessment,Mental health care education,Mental health care management,Mental health history taking assessment,Mental health promotion assessment,Mental health screening assessment,Mental health screening education,Mental health treatment assessment,Mental health treatment education S uicide Risk Assessment Performed 1 04/23/2024 N jada of the standardized tool used for adult depression screening: P atient Health Questionnaire (PHQ-9),Raymundo Depression Inventory (BDI or BDI-II) T ransition of Care: 02/21/2025 BDI: 7, PHQ-9: 2 OLY-7: 12 - start vortioxatine 5 mg (take half a tablet for 4 days then increase to 1 tablet) - start hydroxyzine Pamoate 25 mg QID PRN - continue Lorazepam 0.5 mg PRN. H istory of Presenting Problem: The note is transcribed using speech recognition software. It is a reflection of a visit with the patient. It might have some inaccuracy, including medication names and transcribing errors, though efforts have been made to correct them. History of Present Illness: Sonny is a patient presenting for psychiatric evaluation following an adverse reaction to sertraline and seeking treatment for anxiety and stress-related symptoms. He went to the emergency room last night after experiencing concerning side effects from sertraline, which he had been taking for three days as part of treatment initiated during a recent hospitalization for cardiac workup. The patient reports that on the third day of taking sertraline, he initially experienced panic-like symptoms followed by an icy hot wave going across his body. He noticed facial numbness while brushing his teeth but was not initially concerned as these were mentioned as potential side effects. However, around 10:30 PM, he woke up with the icy hot sensation extending down his esophagus and into his lungs, describing it as having a menthol feeling when breathing. This prompted his emergency room visit, where he was given lorazepam which helped with shaking symptoms and allowed him to sleep. This morning he continued to experience some residual icy hot sensations with sweating and the menthol-like feeling in his lungs. The patient's current episode of anxiety and stress began recently following workplace stress and a medical emergency at home that ultimately was not serious. He reports that his previously effective self-regulation strategies stopped working, and he began experiencing frequent stress and elevated blood pressure readings. His blood pressure, typically measured by the school nurse, averaged 135/85 but sometimes reached 150/90. After two days of normal blood pressure achieved through mindfulness techniques, his primary care provider prescribed buspirone to use as needed when anxiety symptoms returned. Last , feeling anxious again, he took buspirone and within 30 minutes developed full-body shaking. He went to the emergency room for this anxiety attack, where an abnormal EKG was noted, adding to his stress. The following day he took buspirone again with similar shaking reactions, prompting him to contact his doctor who suggested it might not work for him but did not follow up with alternatives. Over the weekend, he remained stressed about needing cardiac evaluation. Tuesday morning he returned to the emergency room due to severe morning anxiety and panic symptoms, noting that mornings tend to be when his anxiety is worst, though he has sometimes been able to breathe through these episodes. He was transferred to [facility] for comprehensive cardiac workup including stress testing and echocardiogram, which showed low risk for cardiac events with results described as not normal, but not bad. During this hospitalization, he was started on sertraline. The patient has a history of antidepressant use, having taken Lexapro from June through August a year and a half ago during a previous stressful period at the end of a school year. He describes it as working yes and no but helping him get through that time. He reports being able to self-regulate well for the past year and a half until the recent stressors. He has a prescription for lorazepam as needed, having used only about five pills from two bottles over the past 3-4 years, but used two of his own plus three at the hospital this week. During his recent hospitalization, he was also given hydroxyzine, which he found very helpful. The patient reports experiencing ruminating thoughts at bedtime that interfere with sleep, describing lying in bed thinking repetitively. He has not had opportunity for normal sleep recently due to hospital stays, noting that his heart rate naturally drops to around 45 during sleep, which triggered alarms during his hospitalization. His blood pressure has been better controlled over the last two days, measuring around 125/84 to 123/87 even after the initial sertraline reaction. He denies known allergies to medications or foods, and reports no significant diagnosed medical conditions, though his blood pressure has been elevated recently. He has not tried hydroxyzine previously and found it effective during his hospital stay. The patient expresses anxiety about starting new medications given his recent adverse reactions. Medical and Family History: Sonny has elevated blood pressure with readings averaging 135/85, sometimes reaching 150/90. Previous treatment with escitalopram from June to August, approximately one and a half years ago. Emergency room visit last for anxiety attack with abnormal EKG findings. Hospitalization at [facility] in [place] for cardiology workup including stress test and echocardiogram, results described as not normal, but not bad with low risk for cardiac event. Emergency room visit last night for adverse reaction to sertraline on day three of treatment. * ROS: P sychiatric: Patient denies a uditory / visual hallucinations, delusions, difficulty sleeping, eating disorder, loss of appetite, mental or physical abuse, mood disorder, substance abuse, suicidal thoughts, dolly, Feeling Intoxicated, Dissociations, Excited, psychosis, involuntary movements. P atient complains of s elf rated anxiety 3/10, stressors, nervous breakdown, panic attacks, difficulty concentrating, irritability. * Screening: * Raymundo Depression Inventory: D ocumented By: Alethea Stover core: 7 I nterpretation: These ups and downs are considered normal B larry Depression Inventory 1 FOR THE PAST WEEKI do not feel sad2 FOR THE PAST WEEKI am not particularly discouraged about the future3 FOR THE PAST WEEKI do not feel like a failure4 FOR THE PAST WEEKI don't enjoy things the way I used to5 FOR THE PAST WEEKI feel guilty a good part of the time6 FOR THE PAST WEEKI don't feel I am being punished7 FOR THE PAST WEEKI don't feel disappointed in myself8 FOR THE PAST WEEKI don't feel I am any worse than anybody else9 FOR THE PAST WEEKI don't have any thoughts of killing [id number] FOR THE PAST WEEKI don't cry any more than usual11 FOR THE PAST WEEKI am slightly more irritated now than usua12 FOR THE PAST WEEKI have not lost interest in other enpuza11 FOR THE PAST WEEKI make decisions about as well as I ever could14 FOR THE PAST WEEKI don't feel that I look any worse than I used to.15 FOR THE PAST WEEKI can work about as well as before.16 FOR THE PAST WEEKI can sleep as well as usual.17 FOR THE PAST WEEKI get tired more easily than I used to.18 FOR THE PAST WEEKMy appetite is not as good as it used to be.19 FOR THE PAST WEEKI have lost more than five [id number] FOR THE PAST WEEKI am worried about physical problems like aches, pains, upset stomach, or [id number] FOR THE PAST WEEKI have not noticed any recent change in my interest in sex * Medical History: Past Psychiatric History: Anxiety Disorder,Panic Disorder Medical History Verified * Surgical History: denied Surgical History verified. * Hospitalization/Major Diagno stic Procedure: cardiac monitoring 02/2025 Hospitalization Verified. * Family History: F ather: None. M aternal Aunt: None. M aternal Uncle: None. P aternal Aunt: None.?Mother: None. P aternal Grandfather: None. P aternal Grandmother: Anxiety Disorder. Maternal Grandfather: None. B rother: None. S ister: Anxiety Disorder. S on: None.?Daughter: None. 2 sister(s) . 1 daughter(s) . . F amily History Verified.. * Social History: T obacco Use: T obacco Control (Standard) T obacco use: F ormer smoker W hen did you start smoking? W hen did you stop smoking? 0 11/04/2014 H ow long has it been since you last smoked??Greater than 10 years D rug/Alcohol: D rugs H ave you used drugs other than those for medical reasons in the past 12 months? N o AUDIT-C (Standard) D id you have a drink containing alcohol in the past year? Y es H ow often did you have a drink containing alcohol in the past year? M onthly or less (1 point) H ow many drinks did you have on a typical day when you were drinking in the past year? 1 or 2 drinks (0 point) H ow often did you have six or more drinks on one occasion in the past year? N ever (0 point) P oints 1 I nterpretation N egative H ousehold: H ousehold M arital status: m arried N umber of adults in household: 2 N umber of children in household: 1 R lalit: grace jaimes of education: f inished college M iscellaneous: S afety issues D o you feel safe at home? Y es A re there any firearms in the house? 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 S ocial History: [place] ouse[place] M arital Status: M arried N umber of Adults in household: 2 N umber of Children in Household: 1 L evel of Education: [employer]/Masters/PhD S ocial History Verified. * Medications: T akingVortioxetine HBr 5 MG Tablet 1 tablet Orally daily hydrOXYzine Pamoate 25 MG Capsule 1 capsule Orally 4 times a day As neededLORazepam 0.5 MG Tablet 1 tablet at bedtime as needed Orally Once a day Medication List reviewed and reconciled with the patientTaking Vortioxetine HBr 5 MG Tablet 1 tablet Orally daily Taking hydrOXYzine Pamoate 25 MG Capsule 1 capsule Orally 4 times a day As neededTaking LORazepam 0.5 MG Tablet 1 tablet at bedtime as needed Orally Once a day Medication List reviewed and reconciled with the patient * Allergies: S ertraline: AllergyyesAllergies Verified. Objective: * Vitals: B P:135/81mm Hg, HR:82/min, Wt:174lbs, Wt-k.93 kg. * Examination: P sychiatry: Appearance: w ell-groomed, well-nourished, appears stated age. Abnormal body movements: n one. Affect / mood: a nxious. Attention: n ormal in conversation. Attitude: c ooperative. Gait n o impairment. Homicidal ideation: n one. Suicidal ideation: n one. Memory status: n o impairment noted. Degree of awareness of surroundings: w ithin normal limits.? Delusions: n o. Hallucinations: n o. Comprehension - Intellectual function: n ormal in conversation. Abstract / proverb - Intellectual function: n ot tested.? Similarities / opposites - Intellectual function: n ot tested. Orientation: a wake, alert and oriented x 3. Perceptual disorders: n o perceptual disorder noted. Psychomotor activity: w ithin normal range. Speech / language: a ppropriate pitch/modulation, clear and coherent, normal rate, volume, and articulation (RVR), proper grammar used. Thought content: a ppropriate. Assessment: * Assessment: 1. G AD (generalized anxiety disorder) - F41.1 (Primary) Plan: * Treatment: 2. O thers Notes: Vortioxetine material was printed, Hydroxyzine material was printed 1. Adverse Reaction to Sertraline - Assessment: Patient experienced concerning symptoms on third day of sertraline including panic, icy hot waves across body, facial numbness, and icy hot sensations in esophagus and lungs with menthol-like breathing sensation. Symptoms required ER evaluation where patient received Ativan which helped with shaking. Residual icy hot sensations in chest and lungs persisted the following morning. ER ruled out serotonin syndrome as patient had no fever. Likely represents sensitivity to serotonin due to underlying generalized anxiety disorder rather than true allergic reaction, as patient did not develop rash or throat closure. - Plan: a. Discontinue sertraline b. Start vortioxetine 5 mg tablets, take half tablet (2.5 mg) for 4 days, then increase to 5 mg daily until next visit c. Take vortioxetine in the morning starting tomorrow 2. Generalized Anxiety Disorder - Assessment: Patient has history of anxiety with previous successful treatment with Lexapro for 2-3 months during school year. Recent stressors including work stress and medical emergency at home led to loss of anxiety control with elevated blood pressure readings. Patient had adverse reactions to buspirone with shaking episodes. Morning anxiety and panic episodes are prominent, with some episodes manageable through breathing techniques. Patient experiences ruminating thoughts at bedtime that interfere with sleep. Anxiety symptoms are consistent with overactive amygdala affecting fight-flight response, breathing, heart rate, and temperature regulation. - Plan: a. Start vortioxetine 2.5 mg for 4 days, then 5 mg daily b. Hydroxyzine 25 mg up to 4 times daily as needed for anxiety, can take 2 tablets at once if one doesn't work, not to exceed 100 mg daily c. Jefferson lorazepam for really big episodes only. d. Grounding techniques information provided e. External stressor techniques: hold ice cube, use Warheads sour candy, or apply Vicks Vaporub mustache before bed for pungent smell f. encourage initiation of psychotherapy * Labs: * L ab: UDT (12 Panel) (Collection Date & Time - 02/21/2025) Value Reference Range A mphetamine (AMP) neg * B arbiturates (BAR) neg * B enzodiazepine (BZO) pos * C ocaine (ANDREY) neg * E cstasy (MDMA) neg * M ethamphetamine (MET) neg * M orphine (MOP) neg * M ethadone (MTD) neg * O xycodone (OXY) neg * P hencyclidine (PCP) neg * T ricyclic Antidepressants (TCA) neg * M arijuana (THC) neg * Procedure Codes: 8 0306 DRUG TST PRSMV READ INSTRMNT ASSTD DIR OPT OBS, Modifiers: QW 1036F TOBACCO [id number] BEHAV ASSMT W/SCORE & DOCD/STAND [id number] PSYCHIATRIC DIAGNOSTIC EVAL W/MEDICAL [id number] VISIT COMPLEXITY INHERENT TO ONGOING CARE RELATED TO A PATIENT'S SINGLE, SERIOUS CONDITION OR A COMPLEX CONDITION * Preventive Medicine: Counseling: S afety: Discussed the risk and benefits of medication(s)? Y es Discussed risks with patient including: sedation, cognitive impairment, psychomotor slowing, potential for dependence, tolerance, withdrawal symptoms (including seizures), and increased fall riskespecially in older adults. Informed patient of risk of respiratory depression when combined with opioids, alcohol, or other SURVEILLANCE SENSOR OPERATOR depressants. Advised on short-term use, lowest effective dose, and regular reassessment. Patient verbalized understanding. Will monitor closely for signs of misuse, dependence, or adverse effects. SSRI/SNRI side effects discussed including but not limited to, gastric upset, nausea, vomiting, diarrhea and/or constipation, weight changes, sexual side effects including loss of libido, increased suicidal thoughts/behaviors in children and young adults, and serotonin syndrome. guns in home: D iscussed the importance of keeping ammunition out of the hands of children, Discussed the importance of storing guns without ammunition Screenings: D epression screening Have you had a recent depression screening? Y es Date of depression screenin 04/23/2024 A lcohol misuse screening Have you had a recent alcohol misuse screening? Y es Date of alcohol misuse screenin 04/23/2024 * Follow Up: 1 03/07/2025 (Reason: medication follow upp) Billing Information: * Procedure Codes: 10811 DRUG TST PRSMV READ INSTRMNT ASSTD DIR OPT OBS. Modifiers: QW 1036F TOBACCO NON-USER. 44878 BEHAV ASSMT W/SCORE & DOCD/STAND INSTRUMENT. 61225 PSYCHIATRIC DIAGNOSTIC EVAL W/MEDICAL SERVICES. G2211 VISIT COMPLEXITY INHERENT TO ONGOING CARE RELATED TO A PATIENT'S SINGLE, SERIOUS CONDITION OR A COMPLEX CONDITION. * PICK UP DRIVER Sign off status: Completed true * Provider: RITU Longoria Date: 04/23/2024 Generated for Alexsandra steinberg/Kieran/Muriel on: 04/23/2024 03:45 PM CAR PICK UP DRIVER
--- OUTSIDE RECORDS SUMMARY | 2025-02-21 15:45 | XMS_ITS | Clinical Summary ---
Author Organization [facility] Address [address] [place] [address] Care Team Providers Care [employer]iconductor Equipment Technician Name Role Phone Adam Almaraz MD Primary Care Provider Allergies No known active allergies Medications LORazepam (ATIVAN) 0.5 MG tablet Take 1 tablet (0.5 mg total) by mouth every 6 (six) hours as needed for Anxiety. Active sertraline (ZOLOFT) 25 MG tablet Take 1 tablet (25 mg total) by mouth daily for 30 days. 30 tablet 03/22/20 25 Active busPIRone (BUSPAR) 5 MG tablet Take 1 tablet (5 mg total) by mouth 3 (three) times daily. 02/19/20 25 Discontinu ed(Error) Active Problems Problem Noted Date Diagnosed Date ST segment depression 02/18/2025 Encounters Date Type Department Care Team Description 02/20/2025 11:11 PM RESOURCE ENGINEER - 02/21/2025 3:02 AM [facility] Emergency [facility] Emergency Room [address] [place] [id number] Claire Marcelo DO Medical Problem Discharge Disposition: Home or Self Care (Routine Discharge) 02/20/2025 Travel 02/18/2025 10:37 AM RESOURCE ENGINEER - 02/19/2025 1:03 PM [facility] Hospital Encounter [facility] Telemetry [place] [address] Rosy Robles MD Simpson, Stephanie L, DO Discharge Disposition: Home or Self Care (Routine Discharge) 02/18/2025 1:11 AM RESOURCE ENGINEER - 02/18/2025 9:46 AM RESOURCE ENGINEER Emergency [facility] Emergency Room [address] [place] [address] Walter Staley MD Baum, Jamie L, MD Anxiety Discharge Disposition: Transfer to [facility] 02/18/2025 Travel 02/14/2025 7:02 PM CDT - 02/14/2025 10:59 PM CDT Emergency [facility] Emergency Room [id number] [place] [id number] Cordell Wolff MD Anxiety Discharge Disposition: Home or Self Care (Routine Discharge) 02/14/2025 Travel from Last 3 Months Family History Medical History Relation Comments Heart Disease Father Relation Status Comments Father Social History Tobacco Use Types Packs/Day Years Used Date Smoking Tobacco: Never Smokeless Tobacco: Never Tobacco Cessation:Counseling Given: Not Answered Alcohol Use Standard Drinks/Week Comments Never 0 [...] any time in the past [address] [facility], were you homeless or living in a [place] health care facility (including now)? No 02/18/2025 [facility] Utilities Answer Date Recorded In the past 12 months has th e electric, gas, oil, or water company threatened to shut off services in your home? No 02/18/2025 Sex and Gender Information Value Date Recorded Sex Assigned at Male 02/14/2025 7:13 PM CDT Legal Sex Male 6:54 PM CDT Gender Identity Male 02/14/2025 7:13 PM CDT Sexual Orientation Not on file Last Filed Vital Signs Vital Sign Reading Time Taken Comments Blood Pressure 115/72 02/21/2025 2:48 AM RESOURCE ENGINEER Pulse 58 02/21/2025 2:48 AM RESOURCE ENGINEER Temperature 36.6 C (97.9 F) 02/21/2025 2:48 AM RESOURCE ENGINEER Respiratory Rate 7 02/21/2025 2:48 AM RESOURCE ENGINEER Oxygen Saturation 98% 02/21/2025 2:48 AM RESOURCE ENGINEER Inhaled Oxygen Concentration - - Weight 82 kg (180 lb 12.4 oz) 02/20/2025 11:19 P M RESOURCE ENGINEER Height 188 cm (6' 2) 02/20/2025 11:19 PM RESOURCE ENGINEER Body Mass Index 23.21 02/20/2025 11:19 PM RESOURCE ENGINEER Plan of Treatment Upcoming Encounters Date Type Department Care Team (Late st Contact Info) Description 03/11/2025 3:15 PM RESOURCE ENGINEER Office Visit [facility] [address] [place] [address] Elise Westbrook MD [address] [place] [address] Health Maintenance Due Date Last Done Comments Colorectal Cancer Screening Colonoscopy (10 Years) 1978 Annual Physical 1981 Hepatitis C 1996 Hepatitis B Vaccines (3 of 3 - 19+ 3-dose series) 02/28/2008 11/08/2007, 08/28/2007 COVID-19 Vaccine ( season) 2024 03/01/2024, 03/01/2023, 02/03/2022, Additional history exists DTaP, Tdap and Td Vaccines (2 - Td or Tdap) 07/02/2029 07/03/2019 Hepatitis A Vaccines Aged Out 08/28/2007 No long er eligible based on patient's age to complete this topic Influenza Adult Completed 01/30/2025, 02/16, 03/01/2023, Additional history exists Meningococcal B Vaccine Aged Out No l onger eligible based on patient's age to complete this topic Meningococcal Vaccine Aged Out No andrei kylie eligible based on patient's age to complete this topic Pneumococcal Vaccine: Pediatrics (0 to 5 Years) and At-Risk Patients (6 to 49 Years) Aged Out No longer eligible based on patient's age to complete this topic RSV Immunizations Under 20 Months Aged Out No longer eligible based on patient's age to complete this topic Goals Goal Patient Goal Type Associated Problems Recent Progress Patient-Stated? Author Health - patient able to perform ADLs independently Lifestyle No Ekaterina Zarate, coordinator of rehabilitation services Procedure Name Priority Date/Time Associated Diagnosis Comments TROPONIN, QUANT STAT 02/21/2025 2:00 AM RESOURCE ENGINEER XR CHEST PA+LAT STAT 02/21/2025 12:04 AM RESOURCE ENGINEER MAGNESIUM STAT 02/20/2025 11:56 PM RESOURCE ENGINEER TROPONIN, QUANT STAT 02/20/2025 11:56 PM RESOURCE ENGINEER COMPREHENSIVE METABOLIC PANEL STAT 02/20/2025 11:56 PM RESOURCE ENGINEER CBC W/DIFF AUTOMATED STAT 02/20/2025 11:56 PM RESOURCE ENGINEER ECG 12-LEAD Routine 02/20/2025 11:40 PM RESOURCE ENGINEER USE ECHOCARDIOGRAM W CON Today 02/19/2025 10:47 AM RESOURCE ENGINEER NM EXER NUC STRESS TEST 1 DAY W TRACING Routine 02/19/2025 9:52 AM RESOURCE ENGINEER CARDIOLOGY STRESS TEST ONLY, EXERCISE Routine 02/19/2025 7:11 AM RESOURCE ENGINEER MAGNESIUM Routine 02/19/2025 6:41 AM RESOURCE ENGINEER COMPREHENSIVE METABOLIC PANEL Routine 02/19/2025 6:41 AM RESOURCE ENGINEER CBC W/DIFF AUTOMATED Routine 02/19/2025 6:41 AM RESOURCE ENGINEER HC URINALYSIS AUTO W/O MICRO Routine 02/19/2025 6:23 AM RESOURCE ENGINEER ECG 12-LEAD Routine 02/19/2025 6:10 AM RESOURCE ENGINEER ECG 12-LEAD STAT 02/18/2025 11:15 PM RESOURCE ENGINEER CK (CPK) Routine 02/18/2025 11:42 AM RESOURCE ENGINEER TSH W/REFLEX Routine 02/18/2025 11:42 AM RESOURCE ENGINEER LIPID PANEL Routine 02/18/2025 11:42 AM RESOURCE ENGINEER HEMOGLOBIN, GLYCOSYLATED Routine 02/18/2025 11:42 AM RESOURCE ENGINEER TROPONIN, QUANT STAT 02/18/2025 5:02 AM RESOURCE ENGINEER CTA CHEST PE PROTOCOL STAT 02/18/2025 3:11 AM RESOURCE ENGINEER ECG 12-LEAD Routine 02/18/2025 2:28 AM RESOURCE ENGINEER XR CHEST PORTABLE STAT 02/18/2025 1:4 9 AM RESOURCE ENGINEER D-DIMER, QUANTITATIVE STAT 02/18/2025 1:29 AM RESOURCE ENGINEER PRO-BRAIN NATRIURETIC PEPTIDE STAT 02/18/2025 1:29 AM RESOURCE ENGINEER TROPONIN, QUANT STAT 02/18/2025 1:29 AM RESOURCE ENGINEER COMPREHENSIVE METABOLIC PANEL STAT 02/18/2025 1:29 AM RESOURCE ENGINEER CBC W/DIFF AUTOMATED STAT 02/18/2025 1:29 AM RESOURCE ENGINEER ECG 12-LEAD Routine 02/18/2025 1:16 AM RESOURCE ENGINEER TROPONIN, QUANT TIMED 02/14/2025 9:52 PM CDT ECG 12-LEAD Routine 02/14/2025 7:50 PM CDT URINALYSIS, AUTO, COMPLETE STAT 02/14/2025 7:40 PM CDT LIPASE STAT 02/14/2025 7:40 PM CDT TROPONIN, QUANT STAT 02/14/2025 7:40 PM CDT COMPREHENSIVE METABOLIC PANEL STAT 02/14/2025 7:40 PM CDT CBC W/DIFF AUTOMATED STAT 02/14/2025 7:40 PM CDT from Last 3 Months Results * TROPONIN, QUANT (02/21/2025 2:00 AM RESOURCE ENGINEER) Only the most recent of6 resultswithin the time period is included. TROPONIN I HIGH SENSITIVITY 17 0 - 75 ng/L 02/21/2025 2:31 AM RESOURCE ENGINEER [facility] Comment: HIGH DOSES OF BIOTIN, TROPONIN-SPECIFIC AUTOANTIBODIES, AND ANTIBODY THERAPY CONTAINING HAMA MAY INTERFERE WITH THIS TEST RESULT. CORRELATION TO CLINICAL HISTORY AND PRESENTATION RECOMMENDED. 02/21/2025 2:00 AM RESOURCE ENGINEER Claire Marcelo DO LABORATORY Final Result [facility] [address] [place] [id number], [place] [phone] * XR CHEST PA+LAT (02/21/2025 12:04 AM RESOURCE ENGINEER) Anatomical Region Laterality Modality Chest Radiographic Taylor ging 02/21/2025 12:0 9 AM RESOURCE ENGINEER Impressions 02/21/2025 12:11 AM RESOURCE ENGINEER IMPRESSION: 1. No acute cardiopulmonary process. Referred By: Interpreted By: Demario Ken MD, 02/21/2025 12:09 AM Narrative 02/21/2025 12:11 AM RESOURCE ENGINEER [facility] [address] [facility] [place] [address] INDICATION: abnormal sensation in the chest and lungs COMPARISON: X-ray chest 02/18/2025 TECHNIQUE: 2 PA radiographs and one lateral radiograph of the chest FINDINGS: No focal airspace consolidation. No pleural effusion or pneumothorax. Cardiomediastinal silhouette and pulmonary vasculature are within normal limits. No acute osseous abnormality. Procedure Note Demario Ken DO - 02/21/2025 [facility] [address] [facility] [place] [address] INDICATION: abnormal sensation in the chest and lungs COMPARISON: X-ray chest 02/18/2025 TECHNIQUE: 2 PA radiographs and one lateral radiograph of the chest FINDINGS: No focal airspace consolidation. No pleural effusion or pneumothorax.Cardiomediastinal silhouette and pulmonary vasculature are within normallimits. No acute osseous abnormality. IMPRESSION: 1. No acute cardiopulmonary process. Referred By: Interpreted By: Demario Ken MD, 02/21/2025 12:09 AM [facility] GENERAL IMAGING Final Result * (ABNORMAL) COMPREHENSIVE METABOLIC PANEL (02/20/2025 11:56 PM RESOURCE ENGINEER) Only the most recent of4 resultswithin the time period is included. GLUCOSE 112(H) 70 - 99 MG/DL 02/21/2025 12:51 AM [facility] BUN 9 7 - 18 MG/DL 02/21/2025 12:51 AM [facility] CREATININE S/P/B 1.21 0.7 - 1.3 MG/DL 02/21/2025 12:51 AM [facility] SODIUM S/P/B 139 136 - 145 MMOL/L 02/21/2025 12:51 AM [facility] POTASSIUM S/P/B 3.4(L) 3.5 - 5.1 MMOL/L 02/21/2025 12:51 AM [facility] CHLORIDE S/P/B 104 100 - 108 MMOL/L 02/21/2025 12:51 AM [facility] CO2 21.2 21 - 32 MMOL/L 02/21/2025 12:51 AM [facility] CALCIUM S/P/B 9.4 8.5 - 10.1 MG/DL 02/21/2025 12:51 AM [facility] BILIRUBIN TOTAL S/P/B 0.9 0.2 - 1.2 MG/DL 02/21/2025 12:51 AM [facility] TOTAL PROTEIN S/P/B 6.7 6.4 - 8.2 G/DL 02/21/2025 12:51 AM [facility] ALBUMIN S/P/B 4.1 3.4 - 5.0 G/DL 02/21/2025 12:51 AM [facility] AST 23 15 - 37 U/L 02/21/2025 12:51 AM [facility] ALT 21 16 - 60 U/L 02/21/2025 12:51 AM [facility] ALKALINE PHOSPHATASE S/P/B 66 50 - 136 U/L 02/21/2025 12:51 AM [facility] ANION GAP 13.8 5 - 15 MMOL/L 02/21/2025 12:51 AM [facility] BUN CREATININE RATIO 7.4 6 - 26 02/21/2025 12:51 AM [facility] A/G RATIO 1.6 1.0 - 2.0 RATIO 02/21/2025 12:51 AM [facility] GFR ESTIMATE 75(L) >90 ML/MIN/1.7 3 M2 02/21/2025 12:51 AM [facility] Comment: NOTE: eGFR is not calculated for patients <18 years of age. This is an estimated GFR calculation using the new CKD EPI creatinine equation without race and so does not require a correction factor for race. This estimated GFR should not be used for calculating drug doses. 02/20/2025 11:5 6 PM RESOURCE ENGINEER Claire Marcelo DO LABORATORY Final Result [facility] [address] [place] [address], * (ABNORMAL) CBC W/DIFF AUTOMATED (02/20/2025 11:56 PM RESOURCE ENGINEER) Only the most recent of4 resultswithin the time period is included. WBC 6.96 4.4 - 11.0 x10'3/uL 02/21/2025 12:45 AM [facility] RBC 5.08 4.50 - 5.90 x10'6/uL 02/21/2025 12:45 AM [facility] HGB 15.7 14.0 - 17.5 G/DL 02/21/2025 12:45 AM [facility] HCT 45.0 41.5 - 50.4 % 02/21/2025 12:45 AM [facility] MCV 88.6 80.0 - 96.0 FL 02/21/2025 12:45 AM [facility] MCH 30.9 26.5 - 31.4 PG 02/21/2025 12:45 AM [facility] MCHC 34.9(H) 31.9 - 34.8 G/DL 02/21/2025 12:45 AM [facility] RDW 12.3 12.3 - 14.3 % 02/21/2025 12:45 AM [facility] PLT 188 151 - 353 x10'3/uL 02/21/2025 12:45 AM [facility] MPV 9.7 9.7 - 11.9 FL 02/21/2025 12:45 AM [facility] RBC MORPHOLOGY NORMAL 02/21/2025 12:45 AM [facility] PLT MORPH. NORMAL 02/21/2025 12:45 AM [facility] WBC MORPHOLOGY NORMAL 02/21/2025 12:45 AM [facility] LYMPHOCYTES % 18.8 15.8 - 45.0 % 02/21/2025 12:45 AM [facility] NEUTROPHILS % 71.7 42.1 - 71.9 % 02/21/2025 12:45 AM RESOURCE ENGINEER [facility] MONOCYTES % 8.0 5.7 - 12.5 % 02/21/2025 12:45 AM RESOURCE ENGINEER [facility] EOSINOPHILS 1.1 0.0 - 5.6 % 02/21/2025 12:45 AM RESOURCE ENGINEER [facility] BASOPHILS 0.3 0.0 - 1.3 % 02/21/2025 12:45 AM RESOURCE ENGINEER [facility] ABS. NEUTROPHILS 4.98 1.40 - 6.00 x10'3/uL 02/21/2025 12:45 AM RESOURCE ENGINEER [facility] IMMATURE GRANS % 0.1 0.0 - 0.5 % 02/21/2025 12:45 AM RESOURCE ENGINEER [facility] ABS. LYMPHOCYTES 1.31 0.80 - 4.70 x10'3/uL 02/21/2025 12:45 AM RESOURCE ENGINEER [facility] 02/20/2025 11:5 6 PM RESOURCE ENGINEER us Claire Marcelo DO LABORATORY Final Result [facility] [address] [place] [address], [place] [phone] * MAGNESIUM (02/20/2025 11:56 PM RESOURCE ENGINEER) Only the most recent of2 resultswithin the time period is included. MAGNESIUM 1.9 1.8 - 2.4 MG/DL 02/21/2025 12:51 AM RESOURCE ENGINEER [facility] 02/20/2025 11:5 6 PM RESOURCE ENGINEER us Claire Marcelo DO LABORATORY Final Result [facility] [address] [place] [address], [place] [phone] * ECG 12 lead (02/20/2025 11:40 PM RESOURCE ENGINEER) Only the most recent of6 resultswithin the time period is included. ECG QT 382 [facility] RAD ECG QTC 395 [facility] RAD 02/20/2025 11:4 0 PM RESOURCE ENGINEER Narrative [facility] RAD - 02/21/2025 11:06 AM RESOURCE ENGINEER [facility] Test Date: 2025-02-20 Pat Name: [facility] Department: 85 Room: EXAM 202 Gender: Male Box Maker Paperboard: : 1980 Requested By: CLAIRE MARCELO Order Number: [id number] Reading MD: Elise Westbrook Measurements Intervals [place] Rate: 64 P: 75 SC: 134 QRS: 56 QRSD: 89 T: -28 QT: 382 QTc: 395 Interpretive Statements SINUS RHYTHM SEPTAL MYOCARDIAL INFARCTION , OF INDETERMINATE AGE [40+ ms Q WAVE IN V1/V2] ST DEPRESSION, CONSIDER SUBENDOCARDIAL INJURY [0.1+ mV ST DEPRESSION] Compared to ECG 02/19/2025 06:10:18 Myocardial infarct finding now present ST (T wave) deviation now present URCE ENGINEER Procedure Note Elise Westbrook MD - 02/21/2025 [facility] Test Date: 2025-02-20 Pat Name: [facility] Department: 85 Room: EXAM 202 Gender: Male Box Maker Paperboard: : 1980 Requested By: CLAIRE MARCELO Order Number: [id number] Reading : Elise Westbrook Measurements Intervals [place] Rate: 64 P: 75 SC: 134 QRS: 56 QRSD: 89 T: -28 QT: 382 QTc: 395 Interpretive Statements SINUS RHYTHM SEPTAL MYOCARDIAL INFARCTION , OF INDETERMINATE AGE [40+ ms Q WAVE INV1/V2] ST DEPRESSION, CONSIDER SUBENDOCARDIAL INJURY [0.1+ mV ST DEPRESSION] Compared to ECG 02/19/2025 06:10:18 Myocardial infarct finding now present ST (T wave) deviation now present URCE ENGINEER us Claire Marcelo DO ECG ORDERABLES Final Result [facility] RAD * USE ECHOCARDIOGRAM W CON (02/19/2025 10:47 AM RESOURCE ENGINEER) Anatomical Region Laterality Modality NA Echocardiogram 02/19/2025 11:0 7 AM RESOURCE ENGINEER Narrative 02/19/2025 11:30 AM RESOURCE ENGINEER Echocardiography Report Pat.Name: JIE CASTLE Pat.ID: [id number] St.Date: 02/19/2025 Refer.MD: [id number] SALLY Ramos EWDPROV EWDPROV Exam Time: 11:07:00 AM Study Type:ECHO WITH CARDIAC DOPPLER COMP Height: 74 in Weight: 180 lb BSA: 2.08 m2 Age: 3 1980,44Y Sex: M BP: 135/90 HR: 75 bpm Sonogrphr: Jillian Ya RDCS Pat. Stat.:Inpatient Room: [facility] Reason for Study:Chest pain Procedures: 2D, M-mode, Doppler, Color Flow, Definity was used to enhance endocardial definition. The study quality is technically difficult. Race: W ++++++++++++++++++++++++++++++++++++ SUMMARY: ++++++++++++++++++++++++++++++++++++ The left ventricular systolic function is normal. Estimated left ventricular ejection fraction is 60-65%. The right ventricular function is normal. ++++++++++++++++++++++++++++++++++++ FINDINGS: ++++++++++++++++++++++++++++++++++++ LV: The left ventricular size is normal. The left ventricular systolic function is normal. Estimated left ventricular ejection fraction is 60-65%. Mild concentric left ventricular hypertrophy. Left ventricular diastolic function is normal. WM: Wall motion appears normal in all segments. RV: The right ventricle size is normal. The right ventricular function is normal. IVS: Intraventricular septum is normal. LA: The left atrial volume is normal ( less than 34 ml/M2). RA: The right atrial size is normal. IAS: Atrial septum appears intact. ELLE: No evidence of pericardial effusion. AO: Normal aortic root. SVn: Systemic veins are normal. AV: The aortic valve is trileaflet. No evidence of aortic valve stenosis. No evidence of aortic valve regurgitation. MV: Trace mitral regurgitation. No evidence of mitral stenosis. PV: Pulmonic valve not well visualized. TV: No evidence of tricuspid regurgitation. ++++++++++++++++++++++++++++++++++++ MEASUREMENTS: ++++++++++++++++++++++++++++++++++++ DOPPLER LVOT LVOTpkPG 4 mmHg LVOTmnPG 2 mmHg LVOTpkVel 99.2 cm/s (70-110)+ LVOT SV 81 ml LVOT TVI 19.6 cm Right Atrium RA Press 3 mmHg Kam's Disk 20 Pulmonary Veins PVnpkVeld 46 cm/s PVnVs/Vd 1.5 PVnpkVels 69.2 cm/s PVn A Dur 106 msec AV Forward Flow AV TVI 22.9 cm AV pkPG 5 mmHg AV pkVel 114 cm/s (100-170)+ Area (TVI) 3.55 cm2 (3-5) AV mnPG 3 mmHg Area (Adalberto) 3.61 cm2 (3-5) MV Forward Flow MV DeTm 192 msec MV E/A 0.9 MVA P1/2t 3.93 cm2 (4-6)* MV pkE 63.6 cm/s (60-130) MV P1/2t 56 msec (30-60)+ MV pkA 68.1 cm/s PV Forward Flow PV pkVel 102 cm/s (60-90)+* PV AC 130 msec PV pkPG 4 mmHg Lat E' Lat e 16.2 cm/s Lat E/E' Lat E/e 3.9 Med E' Med e 8.59 cm/s Med E/E' Med E/e 7.4 Aortic Valve Aortic Valve Ar 1.71 Aortic Valve Ve 0.87 AV DI Value 0.86 Left Ventricle LV IVRT 95 msec Mitral Valve MV A dur 0.124 sec PV A- MV A Value -0.018 sec PV Antegrade Flow Acceleration Sl 592 cm/s2 Right Ventricle Right Ventricle 16.6 cm/s 2D Left Ventricle LVIDd 4.7 cm (3.6-5.2) LV ESV 45.1 ml LVIDs 3 cm (2.3-3.9) LV ESV 32 ml LngAxd 7.84 cm LVESV BP 38 ml LngAxd 7.41 cm LV EF 60.9 % LV EDV 115 ml LV EF 61.2 % LV EDV 82.5 ml LV EF BP 62 % LVEDV BP 100 ml LV SV 70 ml LngAxs 6.17 cm LV SV 50.5 ml LngAxs 6.13 cm LV SV BP 62 ml LVPW LVPWd 1.2 cm Right Ventricle RVIDd 2.8 cm (2.6-4.3) Right Ventricle 26 mm Right Ventricle 40 mm Right and Left 0.596 Major [place] 77 mm Ventricular Septum IVSd 1.3 cm Left Atrium LA a-p 2.7 cm (2.8-3.4)* LA VOLBP 16.5 ml Aorta Ao Rtd 3.4 cm Ao Asc 3.2 cm (2.1-3.4) LVOT LVOT 2.3 cm LVOTArea 4.15 cm2 Ratios IVS Inferior vena cava IVC Diam 17 mm LA Biplane LAVol I BP 7.9 ml/m2 RA Single Plane Right Atrium MO 15.4 mm Right Atrium Sy 26.6 ml Right Atrium Sy 38.8 mm Right Atrium Sy 12.8 ml/m2 Right Atrium Sy 11.3 cm2 MMODE TA Tricuspid Annul 21.4 mm <Electronic Signature> 02/19/2025 11:30 AM Elise Westbrook M.D. Procedure Note Elise Westbrook MD - 02/19/2025 Echocardiography Report Pat.Name: JIE CASTLE Pat.ID: [id number] .Date: 02/19/2025 : [id number] SALLY Ramos EWDPROV EWDPROV Exam Time: 11:07:00 AM Study Type:ECHO WITH CARDIAC DOPPLER COMP Height: 74 in Weight: 180 lb BSA: 2.08 m2 Age: 3 1980,44Y Sex: M BP: 135/90 HR: 75 bpm Sonogrphr: Jillian Ya RDCS Pat. Stat.:Inpatient Room: [facility] Reason for Study:Chest pain Procedures: 2D, M-mode, Doppler, Color Flow, Definity was used to enhance endocardial definition. The study quality is technically difficult. Race: W ++++++++++++++++++++++++++++++++++++ SUMMARY: ++++++++++++++++++++++++++++++++++++ The left ventricular systolic function is normal. Estimated left ventricular ejection fraction is 60-65%. The right ventricular function is normal. ++++++++++++++++++++++++++++++++++++ FINDINGS: ++++++++++++++++++++++++++++++++++++ LV: The left ventricular size is normal. The left ventricular systolic function is normal. Estimated left ventricular ejection fraction is 60-65%. Mild concentric left ventricular hypertrophy. Left ventricular diastolic function is normal. WM: Wall motion appears normal in all segments. RV: The right ventricle size is normal. The right ventricular function is normal. IVS: Intraventricular septum is normal. LA: The left atrial volume is normal ( less than 34 ml/M2). RA: The right atrial size is normal. IAS: Atrial septum appears intact. ELLE: No evidence of pericardial effusion. AO: Normal aortic root. SVn: Systemic veins are normal. AV: The aortic valve is trileaflet. No evidence of aortic valve stenosis. No evidence of aortic valve regurgitation. MV: Trace mitral regurgitation. No evidence of mitral stenosis. PV: Pulmonic valve not well visualized. TV: No evidence of tricuspid regurgitation. ++++++++++++++++++++++++++++++++++++ MEASUREMENTS: ++++++++++++++++++++++++++++++++++++ DOPPLER LVOT LVOTpkPG 4 mmHg LVOTmnPG 2 mmHg LVOTpkVel 99.2 cm/s (70-110)+ LVOT SV 81 ml LVOT TVI 19.6 cm Right Atrium RA Press 3 mmHg Kam's Disk 20 Pulmonary Veins PVnpkVeld 46 cm/s PVnVs/Vd 1.5 PVnpkVels 69.2 cm/s PVn A Dur 106 msec AV Forward Flow AV TVI 22.9 cm AV pkPG 5 mmHg AV pkVel 114 cm/s (100-170)+ Area (TVI) 3.55 cm2 (3-5) AV mnPG 3 mmHg Area (Adalberto) 3.61 cm2 (3-5) MV Forward Flow MV DeTm 192 msec MV E/A 0.9 MVA P1/2t 3.93 cm2 (4-6)* MV pkE 63.6 cm/s (60-130) MV P1/2t 56 msec (30-60)+ MV pkA 68.1 cm/s PV Forward Flow PV pkVel 102 cm/s (60-90)+* PV AC 130 msec PV pkPG 4 mmHg Lat E' Lat e 16.2 cm/s Lat E/E' Lat E/e 3.9 Med E' Med e 8.59 cm/s Med E/E' Med E/e 7.4 Aortic Valve Aortic Valve Ar 1.71 Aortic Valve Ve 0.87 AV DI Value 0.86 Left Ventricle LV IVRT 95 msec Mitral Valve MV A dur 0.124 sec PV A- MV A Value -0.018 sec PV Antegrade Flow Acceleration Sl 592 cm/s2 Right Ventricle Right Ventricle 16.6 cm/s 2D Left Ventricle LVIDd 4.7 cm (3.6-5.2) LV ESV 45.1 ml LVIDs 3 cm (2.3-3.9) LV ESV 32 ml LngAxd 7.84 cm LVESV BP 38 ml LngAxd 7.41 cm LV EF 60.9 % LV EDV 115 ml LV EF 61.2 % LV EDV 82.5 ml LV EF BP 62 % LVEDV BP 100 ml LV SV 70 ml LngAxs 6.17 cm LV SV 50.5 ml LngAxs 6.13 cm LV SV BP 62 ml LVPW LVPWd 1.2 cm Right Ventricle RVIDd 2.8 cm (2.6-4.3) Right Ventricle 26 mm Right Ventricle 40 mm Right and Left 0.596 Major [place] 77 mm Ventricular Septum IVSd 1.3 cm Left Atrium LA a-p 2.7 cm (2.8-3.4)* LA VOLBP 16.5 ml Aorta Ao Rtd 3.4 cm Ao Asc 3.2 cm (2.1-3.4) LVOT LVOT 2.3 cm LVOTArea 4.15 cm2 Ratios IVS Inferior vena cava IVC Diam 17 mm LA Biplane LAVol I BP 7.9 ml/m2 RA Single Plane Right Atrium MO 15.4 mm Right Atrium Sy 26.6 ml Right Atrium Sy 38.8 mm Right At[facility] Sy 12.8 ml/m2 Right Atrium Sy 11.3 cm2 MMODE TA Tricuspid Annul 21.4 mm <Electronic Signature> 02/19/2025 11:30 AM Elise Westbrook M.D. us Elise Westbrook MD ECHO Final Result * NM EXER NUC STRESS TEST 1 DAY W TRACING (02/19/2025 9:52 AM RESOURCE ENGINEER) Anatomical Region Laterality Modality Cardiac Nuclear Medicine 02/19/2025 7:59 AM RESOURCE ENGINEER Narrative 02/19/2025 11:20 AM RESOURCE ENGINEER Myocardial Perfusion Imaging Pat.Name: JIE CASTLE Pat.ID: [id number] .Date: 02/19/2025 Refer.MD: Elise Westbrook [id number] Exam Time: 7:59:00 AM Study Type:RAMÓN NC HT MUSCLE IMAGE SPECT MULTI Height: 74 in Weight: 175 lb BSA: 2.05 m2 Age: 3 1980,44Y Sex: M Sonogrphr: ALEX Castillo Pat. Stat.:Inpatient Reason for Study:Shortness of breath Procedures: Nuclear Stress Test with Exercise Surgery: Echocardiogram, CTA ++++++++++++++++++++++++++++++++++++ SUMMARY: ++++++++++++++++++++++++++++++++++++ Stress conclusion: 1. Clinically [...] overall low risk for a cardiac event. ++++++++++++++++++++++++++++++++++++ FINDINGS: ++++++++++++++++++++++++++++++++++++ Protocol: The images were processed using the standard SPECT technique. A gated study was performed on the stress images. Impression: SPECT images demonstrate normal perfusion of normal intensity. Heart Size: The left ventricle is normal. LV Wall Motion: The LVEF is calculated to be 71%. Gated SPECT images reveal normal wall motion. Transient Ischemic Dilatation: There is no evidence of Transient Ischemic Dilatation. ++++++++++++++++++++++++++++++++++++ STRESS: ++++++++++++++++++++++++++++++++++++ Baseline Vital Signs: ECG: Normal sinus rhythm, Inferior ST depression HR: 79 bmp Rest BP: 128/75 Treadmill Test Protocol: Shailesh Duration: 07:30 min:sec Max. Workload (METS): 9.8 Stress Test Results: Max HR: 182 bmp Target HR: 174 bmp % Target: 105 % Max BP: 166/76 Max RPP: 89835 O2 sat: 100 % Symptoms and Complications: Terminated: Leg fatigue Symptoms: Leg fatigue Complications: None Stress ECG Interp: No significant changes <Electronic Signature> 02/19/2025 11:20 AM Elise Westbrook M.D. Procedure Note Adam Bingham, - 02/19/2025 Myocardial Perfusion Imaging Pat.Name: JIE CASTLE Pat.ID: [id number] St.Date: 02/19/2025 Refer.MD: Elise Westbrook [id number] Exam Time: 7:59:00 AM Study Type:RAMÓN NC HT MUSCLE IMAGE SPECT MULTI Height: 74 in Weight: 175 lb BSA: 2.05 m2 Age: 3 1980,44Y Sex: M Sonogrphr: ALEX Castillo Pat. Stat.:Inpatient Reason for Study:Shortness of breath Procedures: Nuclear Stress Test with Exercise Surgery: Echocardiogram, CTA ++++++++++++++++++++++++++++++++++++ SUMMARY: ++++++++++++++++++++++++++++++++++++ Stress conclusion: 1. Clinically [...] overall low risk for a cardiac event. ++++++++++++++++++++++++++++++++++++ FINDINGS: ++++++++++++++++++++++++++++++++++++ Protocol: The images were processed using the standard SPECT technique. A gated study was performed on the stress images. Impression: SPECT images demonstrate normal perfusion of normal intensity. Heart Size: The left ventricle is normal. LV Wall Motion: The LVEF is calculated to be 71%. Gated SPECT images reveal normal wall motion. Transient Ischemic Dilatation: There is no evidence of Transient Ischemic Dilatation. ++++++++++++++++++++++++++++++++++++ STRESS: ++++++++++++++++++++++++++++++++++++ Baseline Vital Signs: ECG: Normal sinus rhythm, Inferior ST depression HR: 79 bmp Rest BP: 128/75 Treadmill Test Protocol: Shailesh Duration: 07:30 min:sec Max. Workload (METS): 9.8 Stress Test Results: Max HR: 182 bmp Target HR: 174 bmp % Target: 105 % Max BP: 166/76 Max RPP: 35104 O2 sat: 100 % Symptoms and Complications: Terminated: Leg fatigue Symptoms: Leg fatigue Complications: None Stress ECG Interp: No significant changes <Electronic Signature> 02/19/2025 11:20 AM Elise Westbrook M.D. Elise Westbrook MD [facility] Final Result * (ABNORMAL) URINALYSIS (02/19/2025 6:23 AM RESOURCE ENGINEER) SPECIMEN TYPE URINE CLEAN CATCH 02/19/2025 6:31 AM RESOURCE ENGINEER [facility] COLOR (U) LIGHT YELLOW 02/19/2025 6:59 AM RESOURCE ENGINEER [facility] TRANSPARENCY CLEAR 02/19/2025 6:59 AM [facility] SPECIFIC GRAVITY (U) 1.020 1.001 - 1.030 02/19/2025 6:59 AM [facility] U PH 5.5 5.0 - 9.0 02/19/2025 6:59 AM [facility] LEUKOCYTES (U) NEGATIVE NEGATIVE 02/19/2025 6:59 AM RESOURCE ENGINEER [facility] NITRITES NEGATIVE NEGATIVE 02/19/2025 6:59 AM RESOURCE ENGINEER [facility] PROTEIN RANDOM (U) NEGATIVE <30 MG/DL 02/19/2025 6:59 AM RESOURCE ENGINEER [facility] GLUCOSE (U) NORMAL NORMAL MG/DL 02/19/2025 6:59 AM RESOURCE ENGINEER [facility] KETONES MG/DL (U) 40(A) NEGATIVE MG/DL 02/19/2025 6:59 AM RESOURCE ENGINEER [facility] UROBILINOGEN NORMAL NORMAL MG/DL 02/19/2025 6:59 AM RESOURCE ENGINEER [facility] BILIRUBIN (U) NEGATIVE NEGATIVE MG/DL 02/19/2025 6:59 AM RESOURCE ENGINEER [facility] BLOOD (U) NEGATIVE NEGATIVE 02/19/2025 6:59 AM RESOURCE ENGINEER [facility] URINE SPECIMEN OBTAINED BY CLEAN CATCH PROCEDURE / Unknown 02/19/2025 6:23 AM RESOURCE ENGINEER [place] URINE ORDERABLES Final Result [facility] [address] [place] [address], [place] [phone] * TSH W/REFLEX (02/18/2025 11:42 AM RESOURCE ENGINEER) TSH 0.394 0.358 - 3.74 uIU/ML 02/18/2025 12:38 PM RESOURCE ENGINEER [facility] Comment: HIGH DOSES OF BIOTIN MAY INTERFERE WITH THIS TEST RESULT. CORRELATION TO CLINICAL HISTORY AND PRESENTATION RECOMMENDED. FREE T4 NOT INDICATED 02/18/2025 11:4 2 AM RESOURCE ENGINEER [facility]ORAT[facility] Final Result [facility] [address] [place] [address], [place] [phone] * HEMOGLOBIN, GLYCOSYLATED (02/18/2025 11:42 AM RESOURCE ENGINEER) HGB A1C 5.3 <5.7 % 02/18/2025 12:46 PM RESOURCE ENGINEER [facility] Comment: ADA GUIDELINES 2010 5.7 TO 6.4% INCREASED RISK OF DIABETES > OR = 6.5% CONSISTENT WITH DIABETES ESTIMATED AVG GLUCOSE 105 mg/dL 02/18/2025 12:46 PM [facility] 02/18/2025 11:4 2 AM RESOURCE ENGINEER [facility] Final Result Performing Organization Address City/[facility]/ZIP Co de Phone Number [facility] [address] [place] [address], [place] [phone] * LIPID PANEL (02/18/2025 11:42 AM RESOURCE ENGINEER) CHOLESTEROL 142 <200 MG/DL 02/18/2025 12:38 PM RESOURCE ENGINEER [facility] TRIGLYCERIDES 40 <150 MG/DL 02/18/2025 12:38 PM [facility] HDL 61 >40.0 MG/DL 02/18/2025 12:38 PM [facility] LDL (CALCULATED) 73 <100 MG/DL 02/19/20 12:38 PM [facility] Comment:CALCULATED USING THE FRIEDEWALD EQUATION NON HDL CHOLESTEROL 81 <130 MG/DL 02/18 12:38 PM RESOURCE ENGINEER [facility] CHOL/HDL RATIO 2.3 0.0 - 4.5 02/18/2025 12:38 PM RESOURCE ENGINEER [facility] VLDL CALCULATION 8 5 - 55 MG/DL 02/18/2025 12:38 PM RESOURCE ENGINEER [facility] LIPID INTERPRETATION 02/18/2025 12:38 PM RESOURCE ENGINEER [facility] Comment: NIH CONCENSUS REPORT RECOMMENDATIONS: ADULT CHILD LOW RISK: CHOLESTEROL <200 <170 TRIGLYCERIDE <150 --- HDL >=60 --- LDL <100 <110 BORDERLINE: CHOLESTEROL 200-239 170-199 TRIGLYCERIDE 150-199 --- HDL 40-59 --- LDL 100-159 110-129 HIGH RISK: CHOLESTEROL >=240 >=200 TRIGLYCERIDE >=200 --- HDL <40 --- LDL >=160 >=130 02/18/2025 11:4 2 AM RESOURCE ENGINEER [facility] Final Result Performing Organization Address City/[facility]/ZIP Co de Phone Number [facility] [address] [place] [address], [place] [phone] * CK (CPK) (02/18/2025 11:42 AM RESOURCE ENGINEER) CPK 197 35 - 232 U/L 02/18/2025 12:38 PM RESOURCE ENGINEER [facility] 02/18/2025 11:4 2 AM RESOURCE ENGINEER [facility] Final Result [facility] [address] [place] [address], [place] [phone] * CTA CHEST PE PROTOCOL (02/18/2025 3:11 AM RESOURCE ENGINEER) Anatomical Region Laterality Modality Chest Computed Tomogra phy 02/18/2025 3:16 AM RESOURCE ENGINEER Impressions 02/18/2025 3:22 AM RESOURCE ENGINEER IMPRESSION: 1. No evidence of pulmonary emboli. 2. No acute or significant pulmonary disease. 3. Limited evaluation for gastric wall thickening due to nondistention. Referred By: Interpreted By: Margot Wynn MD, 02/18/2025 3:16 AM Narrative 02/18/2025 3:22 AM RESOURCE ENGINEER [facility] [address] [place] [address] EXAMINATION: CTA Chest with Intravenous Contrast, Axial Imaging with Coronal and Sagittal 2-D and 3-D MIP reconstructions as well as 3-D Volume Rendered reconstructions, with 3-D images obtained on an independent work station. 75 mL Isovue 370 was administered intravenously. was administered intravenously for the post-contrast images. This CT exam was performed using one or more of the following dose reduction techniques: automated exposure control, adjustment of the mA and/or kV according to patient size, the use of iterative reconstruction technique, use of ALARA (As Low As Reasonably Achievable) and/or use of Image Gently techniques. INDICATION: Increased shortness of breath. COMPARISON: Portable AP chest x-ray 02/18/2045. FINDINGS: No evidence of pulmonary emboli. Aorta is age-appropriate without aneurysm. Heart size is normal with no significant pericardial effusion. The included thyroid gland is unremarkable. No pathologic adenopathy is seen in the chest. Minimal chronic pleural parenchymal scarring is seen in the lung apices. There is minimal dependent atelectasis posteriorly in the lower lobes. Lungs are otherwise clear with no infiltrates, consolidations, pleural effusion or pneumothorax. Gallbladder, pancreas, liver, spleen, bilateral adrenal glands, in the partially included upper kidneys appear unremarkable. Limited evaluation for gastric wall thickening due to nondistention. Included bowel pattern upper abdomen is otherwise unremarkable. Prominent Schmorl's nodes in the posterior endplates in lower right thoracic spine. No acute osseous abnormality. Procedure Note Margot Wynn MD - 02/18/2025 [facility] [address] [place] [phone] EXAMINATION: CTA Chest with Intravenous Contrast, Axial Imaging withCoronal and Sagittal 2-D and 3-D MIP reconstructions as well as 3-D VolumeRendered reconstructions, with 3-D images obtained on an independent workstation. 75 mL Isovue 370 was administered intravenously. wasadministered intravenously for the post-contrast images. This CT exam was performed using one or more of the following dosereduction techniques: automated exposure control, adjustment of the mAand/or kV according to patient size, the use of iterative reconstructiontechnique, use of ALARA (As Low As Reasonably Achievable) and/or use ofImage Gently techniques. INDICATION: Increased shortness of breath. COMPARISON: Portable AP chest x-ray 02/18/2045. FINDINGS: No evidence of pulmonary emboli. Aorta is age-appropriate withoutaneurysm. Heart size is normal with no significant pericardial effusion.The included thyroid gland is unremarkable. No pathologic adenopathy isseen in the chest. Minimal chronic pleural parenchymal scarring is seen in the lung apices.There is minimal dependent atelectasis posteriorly in the lower lobes.Lungs are otherwise clear with no infiltrates, consolidations, pleuraleffusion or pneumothorax. Gallbladder, pancreas, liver, spleen, bilateraladrenal glands, in the partially included upper kidneys appearunremarkable. Limited evaluation for gastric wall thickening due tonondistention. Included bowel pattern upper abdomen is otherwiseunremarkable. Prominent Schmorl's nodes in the posterior endplates inlower right thoracic spine. No acute osseous abnormality. IMPRESSION: 1. No evidence of pulmonary emboli. 2. No acute or significant pulmonary disease. 3. Limited evaluation for gastric wall thickening due to nondistention. Referred By: Interpreted By: Margot Wynn MD, 02/18/2025 3:16 AM Walter Staley MD CT Final Result * XR CHEST PORTABLE (02/18/2025 1:49 AM RESOURCE ENGINEER) Anatomical Region Laterality Modality Chest Radiographic Taylor ging 02/18/2025 1:51 AM RESOURCE ENGINEER Impressions 02/18/2025 1:52 AM RESOURCE ENGINEER IMPRESSION: No acute pulmonary disease. Referred By: Interpreted By: Margot Wynn MD, 02/18/2025 1:51 AM Narrative 02/18/2025 1:52 AM RESOURCE ENGINEER [facility] [address] [place] [address] EXAMINATION: XR Portable CXR, 1 View, 2 images INDICATION: Shortness of breath, woke up with sensation of heart racing, elevated blood pressure. COMPARISON: None FINDINGS: The cardiomediastinal silhouette is within normal limits. Pulmonary vascularity is normal. court recording monitor leads overlie the chest and upper abdomen. No acute infiltrate, consolidation, pneumothorax, or pleural effusion. No acute osseous abnormality. Procedure Note Margot Wynn MD - 02/18/2025 [facility] [address] [place] [address] EXAMINATION: XR Portable CXR, 1 View, 2 images INDICATION: Shortness of breath, woke up with sensation of heart racing,elevated blood pressure. COMPARISON: None FINDINGS: The cardiomediastinal silhouette is within normal limits. Pulmonaryvascularity is normal. court recording monitor leads overlie the chest and upperabdomen. No acute infiltrate, consolidation, pneumothorax, or pleuraleffusion. No acute osseous abnormality. IMPRESSION: No acute pulmonary disease. Referred By: Interpreted By: Margot Wynn MD, 02/18/2025 1:51 AM Walter Staley MD GENERAL IMAGING Final Result * PRO-BRAIN NATRIURETIC PEPTIDE (02/18/2025 1:29 AM RESOURCE ENGINEER) PRO-B TYPE NATRIURETIC PEPTIDE 37 <125 PG/ML 02/18/2025 2:19 AM RESOURCE ENGINEER [facility] Comment: CUT POINTS ESTABLISHED BY INTERNATIONAL COLLABORAT[employer] ON NT PROBNP (ICON) STUDY (2006). AGE INDEPENDENT: <300 PG/ML HAS A 99% NEGATIVE PREDICTIVE VALUE FOR EXCLUDING ACUTE CHF <50 YEARS: >450 PG/ML IS CONSISTENT WITH ACUTE CHF 50-75 YEARS: >900 PG/ML IS CONSISTENT WITH ACUTE CHF >75 YEARS: >1800 PG/ML IS CONSISTENT WITH ACUTE CHF IN PATIENTS WITH RENAL INSUFFICIENCY (GFR <60), >1200 PG/ML YIELDS A DIAGNOSTIC SENSITIVITY AND SPECIFICITY OF 89% AND 72% FOR ACUTE CHF. 02/18/2025 1:29 AM RESOURCE ENGINEER us Walter Staley MD LABORATORY Final Result Performing Organization Address [facility] Co de Phone Number [facility] [address] [place] [address], [place] [phone] * D-DIMER, QUANTITATIVE (02/18/2025 1:29 AM RESOURCE ENGINEER) D-DIMER <215 0 - 500 ng{FEU}/mL 02/18/2025 2:22 AM RESOURCE ENGINEER [facility] Comment: D-Dimer values less than or equal to 500 ng/mL FEU have a negative predictive value of >95% for exclusion of deep vein thrombosis and pulmonary embolism. In patients over 50 (who tend to have higher normal baseline D-Dimer values), recent studies suggest age-adjusted D-Dimer cutoff values (calculated as: age [years] x 10 ng/mL) result in equivalent outcomes and no additional false negative findings. 02/18/2025 1:29 AM RESOURCE ENGINEER us Walter Staley MD LABORATORY Final Result Performing Organization Address [facility] Co de Phone Number [facility] [address] [place] [address], [place] [phone] * URINALYSIS, AUTO, COMPLETE (02/14/2025 7:40 PM CDT) COLOR (U) YELLOW 02/14/2025 8:10 PM CDT [facility] TRANSPARENCY CLEAR 02/14/2025 8:10 PM CDT [facility] SPECIFIC GRAVITY (U) <1.005 1.000 - 1.030 02/14/2025 8:10 PM CDT [facility] U PH 6.5 5.0 - 9.0 02/14/2025 8:10 PM CDT [facility] LEUKOCYTES (U) NEGATIVE NEGATIVE 02/14/2025 8:10 PM CDT [facility] NITRITES NEGATIVE NEGATIVE 02/14/2025 8:10 PM CDT [facility] PROTEIN RANDOM (U) NEGATIVE NEGATIVE 02/14/2025 8:10 PM CDT [facility] GLUCOSE (U) NEGATIVE NEGATIVE 02/14/2025 8:10 PM T [facility] KETONES MG/DL (U) NEGATIVE NEGATIVE 02/14/2025 8:10 PM CDT [facility] BILIRUBIN (U) NEGATIVE NEGATIVE 02/14/2025 8:10 PM T [facility] BLOOD (U) NEGATIVE NEGATIVE 02/14/2025 8:10 PM CDT [facility] WBC/HPF 0-5 0 - 5 /HPF 02/14/2025 8:10 PM CDT [facility] RBC/HPF 0-5 0 - 5 /HPF 02/14/2025 8:10 PM CDT [facility] EPI/HPF RARE /HPF 02/14/2025 8:10 PM T [facility] URINE SPECIMEN OBTAINED BY CLEAN CATCH PROCEDURE / Unknown 02/14/2025 7:40 PM CDT us Cordell Wolff MD URINE ORDERABLES Final Res ult [facility] [address] [place] [phone], * LIPASE (02/14/2025 7:40 PM CDT) LIPASE 40 16 - 77 UNITS/L 02/14/2025 8:24 PM CDT [facility] 02/14/2025 7:40 PM CDT us Cordell Wolff MD LABORATORY Final Resu lt [facility] [address] [place] [address], [place] [phone] from Last 3 Months Insurance Advance Directives * Full Code (Latest Code Status on File) Date Activated Date Inactivated Comments 02/18/2025 11:21 AM 02/19/2025 3:08 PM Care Teams Semiconductor Equipment Technician Relationship Specialty Start Date End Date Adma Almaraz MD [address] [facility] [address] [place] [address] PCP - General FAMILY PRACTICE 02/14/25
--- OUTSIDE RECORDS SUMMARY | 2025-02-21 15:45 | XMS_ITS | Encounter Summary ---
Author Organization [facility] Address [address] [place] [address] Care Team Providers Care Machine Sewer Name Role Phone Adam Almaraz MD Primary Care Provider [phone] Encounter Details Date Type Department Care Team (Latest Contact Info) Description 02/20/2025 Travel Social History Tobacco Use Types Packs/Day Years [...] any time in the past 12 m [facility], were you homeless or living in a half-way (including now)? No 02/18/2025 [facility] Utilities Answer Date Recorded In [...] on file documented as of this encounter Functional Status * Are you [...] 11:21 PM Kori Patel RN Active * [place] Suicide Severity Rating Scale (Screener/Recent Self-Report) Question Answer Date of Assessment Author Status 1. Wish to be (Past 1 Month) No 02/20/2025 11:21 PM Mellisa Patel RN Ac tive 2. Non-Specific Active Suicidal Thoughts (Past 1 Month) No 02/20/2025 11:21 PM Mellisa Patel RN Ac tive 6. Suicidal Behavior (Lifetime) No 02/20/2025 11:21 PM Mellisa Patel RN Ac tive documented as of this encounter Mental Status * Because of a physical, mental, or emotional condition, do you have serious difficulty concentrating, remembering, or making decisions? Answer Entry Date Author Status No 02/18/2025 11:53 AM Ekaterina Tolentino RN Active documented in this encounter Plan of Treatment Upcoming Encounters Date Type Department Care Team (Late st Contact Info) Description 03/11/2025 3:15 PM DETECTIVE SUPERVISOR Office Visit [facility], [address] [phone] Elise Westbrook MD [address] [facility] [place] [address] [place] [phone] documented as of this encounter Goals Goal Patient Goal Type Associated Problems Recent Progress Patient-Stated? Author Health - patient able to perform ADLs independently Lifestyle No Ekaterina Zarate RN documented as of this encounter Visit Diagnoses Not on filedocumented in this encounter Care Teams Machine Sewer Relationship Specialty Start Date End Date Adam Almaraz MD [address] [facility] [address] [place] [address] PCP - General FAMILY PRACTICE 02/14/25 documented as of this encounter
--- OUTSIDE RECORDS SUMMARY | 2025-02-21 15:46 | XMS_ITS | Patient Health Record ---
Author Organization [facility] [employer] Address [facility] [facility] [address] [place] [address] Care Team Providers Care Director Selection And Administration Name Role Phone Marcello Santamaria Unavailable [phone] Allergies Allergen (clinical drug ingredient) Drug/Non Drug [...] Tricyclic Antidepressants (TCA) neg Marijuana (THC) neg Reason For Referral No Information Medications Medication SIG (Take, Route, Frequency, Duration) [...] 2 Number of children in household: 1 Mosque: druze Level of education: finished college Drug/Alcohol: Social [...] Status Risk Notes Problem Generalized anxiety disorder (68977306) OLY (generalized anxiety disorder) (F41.1) Active confirmed Vital Signs Heart Rate 82 /min 02/21/2025 Blood pressure diastolic 81 mm Hg 02/21/2025 Weight-kg 78.93 kg 02/21/2025 Blood pressure systolic 135 mm Hg 02/21/2025 Weight 174 lbs 02/21/2025 Encounters Encounter Location Date Provider Diagnosis [facility] [employer] [facility] [address] [address] 02/21/2025 [facility] OLY (generalized anxiety disorder) F41.1 Assessments Encounter [...] not to exceed 100 mg daily c. [place] lorazepam for really big episodes only. d. Grounding techniques information provided e. External stressor techniques: hold ice cube, use Warheads sour candy, or apply Vicks Vaporub mustache before bed for pungent smell f. encourage initiation of psychotherapy Plan Of Treatment Next Appt Details Provider Name:Marcello Santamaria, 03/07/2025 08:15:00 AM, [address], [place], [address], Insurance Providers Payer Name Payer Address Payer Phone Subscriber Number Group Number Insured Name Patient Relationship to Insured Coverage Start Date Coverage End Date Pending sale to [facility] [address] [place] [address] [id number] Sonny Galvin Self - patient is the insured Medical (General) History Medical History History ICD Code Past Psychiatric History: Anxiety Disord er,Panic Disorder Surgical History Surgery Date(Month/Year) denied Hospitalization History Reason Date(Month/Year) cardiac monitoring 02/2025
--- OUTSIDE RECORDS SUMMARY | 2025-02-21 15:46 | XMS_ITS | Clinical Summary ---
Author Organization [facility] Address [address] [facility] [place] [address] Care Team Providers Care Electrical Manufacturing Engineer Name Role Phone Adam Almraaz MD Primary Care Provider [phone] Source Comments [facility],non-owned Affiliates and Associated Physician Practices is amultiple site organization consisting of ambulatory clinics and hospital sitesin [place], [place], [place] and [place]. This disclosure is being madepursuant to the Care Everywhere program and may not contain all information available regarding this patient. Last updated 18.[facility] Allergies No known active allergies Medications * Be aware that medications may not be up to date on this document. Alwaysverify current medications with the patient. No known medications Social History Tobacco Use Types Packs/Day Years Used Date Smoking Tobacco: Former Sex and Gender Information Value Date Recorded Sex Assigned at Not on file Legal Sex Male 2:16 PM DELICATESSEN CLERK Gender Identity Not on file Sexual Orientation Not on file Last Filed Vital Signs Vital Sign Reading Time Taken Comments Blood Pressure 132/88 03/22/2016 4:12 PM DELICATESSEN CLERK Pulse 49 03/22/2016 4:12 PM DELICATESSEN CLERK Temperature 37 C (98.6 F) 03/22/2016 4:12 PM DELICATESSEN CLERK Respiratory Rate 16 03/22/2016 4:12 PM DELICATESSEN CLERK Oxygen Saturation 99% 03/22/2016 4:12 PM DELICATESSEN CLERK Inhaled Oxygen Concentration - - Weight 81.6 kg (180 lb) 03/22/2016 4:12 PM DELICATESSEN CLERK Height 188 cm (6' 2) 03/22/2016 4:12 PM DELICATESSEN CLERK Body Mass Index 23.11 03/22/2016 4:12 PM DELICATESSEN CLERK Plan of Treatment Health Maintenance Due Date [...] patient's age to complete this topic [place] [address] [place] [address] [place] [address] Care Teams Electrical Manufacturing Engineer Relationship Specialty Start Date End Date Adam Almaraz MD [address] [place] [address] PCP - General Family Medicine 03/22/16
== END 2025-02-20 20:24 | disposition home or self-care (01) ==
PROVIDERS: Emergency Provider Nurse Practitioner; PCP Family Medicine
DX: T50.905A Adverse effect of unspecified drugs, medicaments and biological substances, initial encounter (principal); R06.02 Shortness of breath; R22.0 Localized swelling, mass and lump, head; R11.10 Vomiting, unspecified; R07.9 Chest pain, unspecified; F41.9 Anxiety disorder, unspecified; Z79.899 Other long term (current) drug therapy
CPT/HCPCS: 99211; G0463